=== PATIENT | female | born 1970 | race Caucasian/White ===

== ENCOUNTER → 2017-03-26 | Outpatient (CLI) | payer BC | LOC: WOUNDCARE 13:21 | PROVIDERS: ATTEND Nurse Practitioner | DX: L98.422 Non-pressure chronic ulcer of back with fat layer exposed (principal) | CPT/HCPCS: 11042; 11045 ==

== ENCOUNTER → 2017-03-26 | Outpatient (CLI) | payer BC ==
--- NOTE | 2017-03-26 21:54 | Diagnostic Imaging Report ---
2 views of the left scapula. INDICATION: Nonpressure ulcer. FINDINGS: No fracture or dislocation seen. No radiopaque foreign body. No erosion or periosteal reaction is seen to suggest osteomyelitis. There is a BB marker placed along the left trapezius region marking site of skin ulcer which is superior to the location of the scapula and appears to relate to the posterior upper left ribs. No definite osseous abnormality. IMPRESSION: No erosion or periosteal reaction is seen. Dictated by: Dictated on workstation # [id number]
== END ==
LOC: RAD 15:14
PROVIDERS: ATTEND Nurse Practitioner
DX: L98.422 Non-pressure chronic ulcer of back with fat layer exposed (principal)
CPT/HCPCS: 73010

== ENCOUNTER → 2017-04-02 | Outpatient (CLI) | payer BC | LOC: WOUNDCARE 15:35 | PROVIDERS: ATTEND Nurse Practitioner | DX: L98.422 Non-pressure chronic ulcer of back with fat layer exposed (principal) | CPT/HCPCS: 11042 ==

== ENCOUNTER → 2017-04-09 | Outpatient (CLI) | payer BC | LOC: WOUNDCARE 15:37 | PROVIDERS: ATTEND Nurse Practitioner | DX: L98.422 Non-pressure chronic ulcer of back with fat layer exposed (principal) | CPT/HCPCS: 11042 ==

== ENCOUNTER → 2017-04-16 | Outpatient (CLI) | payer BC | LOC: WOUNDCARE 15:28 | PROVIDERS: ATTEND Nurse Practitioner | DX: L98.422 Non-pressure chronic ulcer of back with fat layer exposed (principal) | CPT/HCPCS: 11042 ==

== ENCOUNTER → 2017-04-16 | Outpatient (CLI) | payer BC ==
--- NOTE | 2017-04-16 19:59 | Diagnostic Imaging Report ---
Ultrasound of the neck. INDICATION: Keloid area. FINDINGS: There is a hypoechoic circumscribed elongated lesion along the upper back measuring 4.9 x 0.6 x 3.7 cm which appears to be based on the skin. There is mild internal vascularity seen. A second hypoechoic lesion is seen in the upper back also appears to be based on the skin measuring 4.3 x 0.4 x 2.5 cm. Mild internal vascularity with color Doppler is seen. IMPRESSION: Nonspecific skin-based circumscribed lesions are seen in 2 areas in the upper back. These could relate to scarring. Correlate clinically. Dictated by: Dictated on workstation # [id number]
== END ==
LOC: RAD 14:16
PROVIDERS: ATTEND Nurse Practitioner
DX: L98.422 Non-pressure chronic ulcer of back with fat layer exposed (principal)
CPT/HCPCS: 76536

== ENCOUNTER → 2017-04-30 | Outpatient (CLI) | payer BC | LOC: WOUNDCARE 15:25 | PROVIDERS: ATTEND Nurse Practitioner | DX: L98.422 Non-pressure chronic ulcer of back with fat layer exposed (principal) | CPT/HCPCS: 11042 ==

== ENCOUNTER → 2017-05-04 | Outpatient (CLI) | payer BC | LOC: WOUNDCARE 14:36 | PROVIDERS: ATTEND Surgery | DX: L98.422 Non-pressure chronic ulcer of back with fat layer exposed (principal) | CPT/HCPCS: 11042; 87070; 87075; 87186; 87205 ==

== ENCOUNTER → 2017-05-12 | Outpatient (CLI) | payer BC ==
[2017-05-12 11:49] LABS: ANION GAP 9 MMOL/L (5-14); BLOOD UREA NITROGEN 16 MG/DL (7-18); BUN/CREATININE RATIO 21; CALCIUM 9.2 MG/DL (8.5-10.1); CARBON DIOXIDE 28 MMOL/L (21-32); CHLORIDE 103 MMOL/L (98-107); CREATININE SERUM 0.78 MG/DL (0.60-1.30); GFR ESTIMATED > 60; GLUCOSE 102 MG/DL (70-105); POTASSIUM 3.6 MMOL/L (3.6-5.0); SODIUM 140 MMOL/L (135-145)
== END ==
LOC: LAB 11:08
PROVIDERS: ATTEND Nurse Practitioner
DX: L98.422 Non-pressure chronic ulcer of back with fat layer exposed (principal); L03.818 Cellulitis of other sites
CPT/HCPCS: 36415; 80048

== ENCOUNTER → 2017-05-12 | Outpatient (CLI) | payer BC | LOC: WOUNDCARE 10:12 | PROVIDERS: ATTEND Nurse Practitioner | DX: L98.422 Non-pressure chronic ulcer of back with fat layer exposed (principal); L03.818 Cellulitis of other sites | CPT/HCPCS: 11042 ==

== ENCOUNTER → 2017-05-21 | Outpatient (CLI) | payer BC ==
--- NOTE | 2017-05-22 18:01 | Diagnostic Imaging Report ---
Bilateral screening mammogram 2D views with tomosynthesis. The current study was also evaluated with a Computer Aided Detection (CAD) system. INDICATION: Screening. No current complaints stated on the questionnaire. COMPARISON: None. This is a baseline study. FINDINGS: The breasts are composed of heterogeneously dense parenchyma which may decrease mammographic sensitivity. No mass, architectural distortion, or suspicious cluster of calcifications is seen. IMPRESSION: Dense breast parenchyma with no suspicious focal mass. Annual screening mammogram is recommended. ACR BI-RADS Category 2: Benign findings. Result letter will be mailed to the patient. Note: At least 10% of breast cancer is not imaged by mammography. Dictated on workstation # [id number]
== END ==
LOC: RAD 14:52
PROVIDERS: ATTEND Obstetrics & Gynecology
DX: Z12.31 Encounter for screening mammogram for malignant neoplasm of breast (principal)

== ENCOUNTER → 2017-05-21 | Outpatient (CLI) | payer BC | LOC: WOUNDCARE 15:16 | PROVIDERS: ATTEND Nurse Practitioner | DX: L98.422 Non-pressure chronic ulcer of back with fat layer exposed (principal); L03.818 Cellulitis of other sites | CPT/HCPCS: 11042 ==

== ENCOUNTER → 2017-05-28 | Outpatient (CLI) | payer BC | LOC: WOUNDCARE 15:30 | PROVIDERS: ATTEND Nurse Practitioner | DX: L98.422 Non-pressure chronic ulcer of back with fat layer exposed (principal); L03.818 Cellulitis of other sites | CPT/HCPCS: 11042 ==

== ENCOUNTER → 2017-06-04 | Outpatient (CLI) | payer BC | LOC: WOUNDCARE 15:35 | PROVIDERS: ATTEND Nurse Practitioner | DX: L98.422 Non-pressure chronic ulcer of back with fat layer exposed (principal); L03.818 Cellulitis of other sites | CPT/HCPCS: 11042 ==

== ENCOUNTER → 2017-06-11 | Outpatient (CLI) | payer BC | LOC: WOUNDCARE 13:58 | PROVIDERS: ATTEND Surgery | DX: L98.422 Non-pressure chronic ulcer of back with fat layer exposed (principal); L03.818 Cellulitis of other sites | CPT/HCPCS: 11042 ==

== ENCOUNTER → 2017-06-11 | Outpatient (CLI) | payer BC ==
--- NOTE | 2017-06-11 15:17 | Diagnostic Imaging Report ---
EXAMINATION: Pelvic ultrasound. INDICATION: Right-sided mass, pelvic pressure. FINDINGS: There are no prior ultrasound studies available for comparison. The uterus is not enlarged measuring 5 x 3.2 x 2.3 cm. The endometrial lining is not thickened measuring 3 mm. There is no focal mass involving the uterus to suggest a fibroid. The ovaries are not well visualized. There is no solid pelvic mass or free fluid collection noted. IMPRESSION: 1. There is no acute pelvic abnormality identified although neither ovary is visualized. 2. If clinical concern regarding an acute abnormality persists and further imaging is desired, then CT will be recommended. Dictated on workstation # [id number]
== END ==
LOC: RAD 13:31
PROVIDERS: ATTEND Obstetrics & Gynecology
DX: R10.2 Pelvic and perineal pain (principal); N95.0 Postmenopausal bleeding
CPT/HCPCS: 76830; 76856

== ENCOUNTER → 2017-06-18 | Outpatient (CLI) | payer BC | LOC: WOUNDCARE 15:44 | PROVIDERS: ATTEND Nurse Practitioner | DX: L98.422 Non-pressure chronic ulcer of back with fat layer exposed (principal); L03.818 Cellulitis of other sites | CPT/HCPCS: 11042 ==

== ENCOUNTER → 2017-06-25 | Outpatient (CLI) | payer BC | LOC: WOUNDCARE 14:09 | PROVIDERS: ATTEND Nurse Practitioner | DX: L98.422 Non-pressure chronic ulcer of back with fat layer exposed (principal); L03.818 Cellulitis of other sites | CPT/HCPCS: 11042 ==

== ENCOUNTER → 2017-07-02 | Outpatient (CLI) | payer BC | LOC: WOUNDCARE 13:05 | PROVIDERS: ATTEND Nurse Practitioner | DX: L98.422 Non-pressure chronic ulcer of back with fat layer exposed (principal) | CPT/HCPCS: 11042 ==

== ENCOUNTER 2017-07-07 12:10 | Outpatient (CLI) | payer BC ==
[~2017-07-07] VITALS: Ht 162.6 cm; Wt 81.2 kg
[2017-07-07 12:19] VITALS: BP 128/79
[2017-07-07] MEDS ORDERED: NF-PREM2.5 PO (12:27)
== END 2017-07-07 13:30 | disposition home or self-care (01) ==
LOC: PREOP 12:10
PROVIDERS: ATTEND Surgery
DX: Z01.818 Encounter for other preprocedural examination (principal); Z11.2 Encounter for screening for other bacterial diseases; L98.422 Non-pressure chronic ulcer of back with fat layer exposed
CPT/HCPCS: 87081

== ENCOUNTER → 2017-07-16 | Outpatient (CLI) | payer BC ==
[~2017-07-16] MED LIST: NF-PREM2.5 PO
== END ==
LOC: WOUNDCARE 13:37
PROVIDERS: ATTEND Nurse Practitioner
DX: L98.422 Non-pressure chronic ulcer of back with fat layer exposed (principal)
CPT/HCPCS: 11042

== ENCOUNTER → 2017-07-23 | Outpatient (CLI) | payer BC | LOC: WOUNDCARE 14:12 | PROVIDERS: ATTEND Nurse Practitioner | DX: L98.422 Non-pressure chronic ulcer of back with fat layer exposed (principal) | CPT/HCPCS: 11042 ==

== ENCOUNTER → 2017-08-06 | Outpatient (CLI) | payer BC | LOC: WOUNDCARE 14:12 | PROVIDERS: ATTEND Nurse Practitioner | DX: L98.422 Non-pressure chronic ulcer of back with fat layer exposed (principal) | CPT/HCPCS: 11042 ==

== ENCOUNTER 2018-10-02 12:05 | Emergency (ER) | payer BC ==
[~2018-10-02] VITALS: Ht 160 cm; Wt 81.6 kg
--- OUTSIDE RECORDS SUMMARY | 2018-10-02 12:10 | XMS REPORT ---
Author Author Migration, Doctor Organization [facility] Address Unknown Phone Unavailable Care Team Providers Care Muff Winder Name Role Phone Migration, Doctor Unavailable Unavailable PROBLEMS Type Condition ICD9-CM Code [id number] Code Onset Dates Condition Status SNOMED Code Problem Spasm of muscle 728.85 Active 34268304 Problem Overactive bladder N32.81 Active 640143016 ALLERGIES No Information ENCOUNTERS Encounter Location Date Diagnosis [address] [id number] 15 Jul, 2018 History of bronchitis Z87.[address] [id number] 07 Jul, 2018 Bron[address]itis J[address] [id number] Jul, Bronchitis J40 [address] [id number] Jun, Bronchitis J40 and Overactive bladder N32.81 [facility] [id number] [place] [id number] Sep, [facility] [id number] [place] [address] Sep, [address] [id number] Dec, [facility] [id number] [place] [phone] May, [facility] [address] [address] Apr, [facility] [address] [id number] October, [facility] [address] [address] Jun, [facility] [address] [facility] [id number] [address] Jun, [facility] [address] [facility] [id number], [place] [address] May, [facility] [address] [facility] [id number], [place] [address] May, [facility] [address] [facility] [id number], [place] [address] Apr, [facility] [address] [id number][place] [address] Apr, [facility] [address] [facility] [id number], [place] [address] Apr, [facility] [address] [facility] [id number], [place] [address] Apr, [facility] [address] [facility] [id number], [place] [address] Mar, [facility] [address] [facility] [id number], [place] [address] Mar, [facility] [address] [id number], [place] [address] Mar, [facility] [address] [id number], [place] [address] Jan, [facility] [address] [facility] [id number], [place] [address] Nov, [facility] [address] [facility] [id number], [place] [address] October, [facility] [address] [facility] [id number][place] [address] 14 Sep, 2008 [facility] [address] [facility] [id number], [place] [address] 13 Jul, 2008 IMMUNIZATIONS No Known Immunizations SOCIAL HISTORY Never Assessed [place] [place] VITAL SIGNS MEDICATIONS Medication Instructions Dosage Frequency Start Date End Date Duration Status Meloxicam 15 mg take 1 tablet (15 mg) by oral route once daily Dec, Active Parafon Forte DSC 500 mg 1 tablet by Oral route 3 times per day for 14 day( s)PRN Dec, Active RESULTS No Results PROCEDURES No Known procedures INSTRUCTIONS MEDICATIONS ADMINISTERED No Known Medications MEDICAL (GENERAL) HISTORY Type Description Date Surgical History bladder suspension Surgical History tubal ligation Surgical History wound on neck Hospitalization History Surgery(s)/Childbirth(s) only
--- OUTSIDE RECORDS SUMMARY | 2018-10-02 12:10 | XMS REPORT ---
Author Author YESSY JONES [facility] Address [address] [place] [address] Care Team Providers Care Tuber Operator Name Role Phone JONESYESSY Fry Unavailable PROBLEMS Type Condition ICD9-CM Code RXR63-CV Code Onset Dates Condition Status SNOMED Code Problem Overactive bladder N32.81 Active 085668610 Problem Spasm of muscle 728.85 Active 20570276 ALLERGIES Substance Reaction Event Type Date Status SulfADIAZINE hives Drug Allergy Jun, Active Benadryl hypes her up Drug Allergy Jun, Active Mycins hives Non Drug Allergy Jun, Active SOCIAL HISTORY Never Assessed PLAN OF CARE Activity Details Follow Up prn Reason: VITAL SIGNS Height 64 in 2016-07-07 Weight 172.2 lbs 2016-07-07 Temperature 97.7 degrees Fahrenheit 2016-07-07 Heart Rate 82 bpm 2016-07-07 Respiratory Rate 18 2016-07-07 BMI 29.55 kg/m2 2016-07-07 Blood pressure systolic 110 mmHg 2016-07-07 Blood pressure diastolic 64 mmHg 2016-07-07 MEDICATIONS Medication Instructions Dosage Frequency Start Date End Date Duration Status Detrol 1 MG Orally Twice a day 1 tablet 12h Jun, Active PrednisoLONE 5 mg as directed Jun, Active Benzonatate 100 mg Orally Three times a day 1 capsule as needed 8h Jun, Active Albuterol Sulfate HFA 108 (90 Base) MCG/ACT Inhalation 4 times a day 2 puffs as needed 6h Jun, Active RESULTS Name Result Date Reference Range UA LONG DIP (IN HOUSE) 2016-07-07 Lot # [id number] Exp date 05/01 Clarity clear Color yellow Odor no GLU neg LILY neg KET neg SG 1.025 BLO neg pH 7.0 Protein neg URO 0.2 NIT neg GENEVA neg Lot # Exp date PROCEDURES Procedure Date Ordered Result Body Site URINALYSIS, AUTO, W/O SCOPE Jul 07, 2016 IMMUNIZATIONS No Known Immunizations MEDICAL (GENERAL) HISTORY Type Description Date Surgical History bladder suspension Surgical History tubal ligation Hospitalization History Surgery(s)/Childbirth(s) only
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
--- NOTE | 2018-10-02 12:15 | NUR ---
ATTEMPT TO BRING PT TO A ROOM ET PT NOT IN WAITING ROOM.
[2018-10-02] MEDS ORDERED: TETRACAINE 0.5% OPHTH SOLN 4 ML BTL (SINGLE DOSE ONLY) OU ONE (12:30)
[2018-10-02] MEDS ORDERED: FLUORESCEIN (FLUOR-I-STRIPS) 1 MG STRP OU ONE (12:30)
[2018-10-02] MEDS ORDERED: BSS 15 ML IR ONE (12:30)
--- NOTE | 2018-10-02 13:02 | ED EENT ---
History of Present Illness General Chief Complaint: Eye Problems Stated Complaint: ZACHARY IN EYE Nursing Triage Note: ARRIVED VIA AMB TO ROOM 07. 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 STATES SHE HAS TRIED FLUSHING HER EYE AND TOOK A SHOWER. Source: patient Exam Limitations: no limitations History of Present Illness Date Seen by Provider: Oct 02, 2018 Time Seen by Provider: 12:21 Initial Comments This 48-year-old woman presents to the emergency room with intense left eye pain after a glob of mortar fell in it while she was working with [employer]. She irrigated it with water, took a shower, and used Systane drops but is still having intense pain. She does not want to open either of her eyes and presents with sunglasses on and a cloth over her eyes. The incident happened within about the last hour. Allergies and Home Medications Allergies Coded Allergies: Penicillins (Verified Allergy, Unknown, 07/07/17) Sulfa (Sulfonamide Antibiotics) (Verified Allergy, Unknown, 07/07/17) acetaminophen (Verified Allergy, Unknown, LETHARIC, 07/07/17) arginine (Verified Allergy, Unknown, ANAPHYLAXIS, 07/07/17) ascorbic acid (Verified Allergy, Unknown, ANAPHYLAXIS, 07/07/17) citric acid (Verified Allergy, Unknown, ANAPHYLAXIS, 07/07/17) diphenhydramine (Verified Allergy, Unknown, ANAPHYLAXIS, 07/07/17) doxepin (Verified Allergy, Unknown, 07/07/17) egg (Verified Allergy, Unknown, 07/07/17) hydrocodone (Verified Allergy, Unknown, LETHARIC, 07/07/17) lidocaine (Verified Allergy, Unknown, 07/07/17) malic acid (Verified Allergy, Unknown, ANAPHYLAXIS, 07/07/17) meloxicam (Verified Allergy, Unknown, 07/07/17) meperidine (Verified Allergy, Unknown, 07/07/17) vitamin E (d-alpha tocopherol) (Verified Allergy, Unknown, ANAPHYLAXIS, ) whey (Verified Allergy, Unknown, ANAPHYLAXIS, 07/07/17) Home Medications Estrog Conj/Medryoxyprog Acet 1 Tab Tab, 1 TAB PO DAILY, (Reported) Patient Home Medication List Home Medication List Reviewed: Yes Review of Systems Review of Systems Constitutional: no symptoms reported Eyes: See HPI Ears: No Symptoms Reported Nose: no symptoms reported Mouth: no symptoms reported Throat: no symptoms reported Respiratory: no symptoms reported Cardiovascular: no symptoms reported Gastrointestinal: no symptoms reported Musculoskeletal: no symptoms reported Skin: no symptoms reported Neurological: No Symptoms Reported Hematologic/Lymphatic: No Symptoms Reported Past Tyoxlhq-Vdzste-Oozltf Hx Patient Social History Alcohol Use: Denies Use Recreational Drug Use: No Smoking Status: Never a Smoker Recent Foreign Travel: No Contact w/Someone Who Travel: No Recent Infectious Disease Expo: No Recent Hopitalizations: No Seasonal Allergies Seasonal Allergies: No Past Medical History Surgeries: Yes (DXLS, ANT REPAIR) Tubal Ligation Respiratory: No Cardiac: No Neurological: Yes Headaches /Migraines UTI-Chronic Gastrointestinal: Yes (HX OF CONSTIPATION, HX OF IRRITABLE BOWEL) Musculoskeletal: No Endocrine: No Cancer: No Psychosocial: No Integumentary: Yes (WOUND ON BACK) Pruritis Blood Disorders: No Visual Acuity : Eye Location: Left Physical Exam Vital Signs Vital Signs - First Documented 10/02/18 12:19 Temp 98.0 Pulse 77 Resp 16 B/P (MAP) 144/94 (111) Pulse Ox 98 O2 Delivery Room Air Height, Weight, BMI Height: 5'3.00" Weight: 180lbs. 0.0oz. 81.246343ov; 30.7 BMI Method:Stated General Appearance: WD/WN, moderate distress Eyes: right eye normal inspection, right eye corneal abrasion (there is corneal abrasion covering at least one third of the cornea on the inferior aspect. There is questionable chemical burn as well. Irregularity of the cornea could be seen without floor seen and was much more prominent with floor seen exam. No foreign bodies were detected.); bilateral eye PERRL, bilateral eye EOMI Ears: bilateral ear auricle normal Nose: normal inspection Cardiovascular: regular rate, rhythm, no edema, no murmur Respiratory: lungs clear, normal breath sounds, no respiratory distress Neurologic/Psychiatric: frame cleaner II-XII nml as tested (vision blurred in the left eye due to corneal abrasion), no motor/sensory deficits, alert, normal mood/ affect, oriented x 3 Skin: normal color, warm/dry Procedures/Interventions Eye : Location: left eye Eye Irrigated w/ Saline (ccs): 30 Anesthesia (gtts): Tetracaine Progress/Procedure Conclusion I was anesthetized with tetracaine drops. Corneal abrasion and/or chemical burn was noted covering about one fourth to one third of the cornea on the inferior aspect. Eye was irrigated with a bottle of balanced saline. An additional drop of tetracaine was placed after irrigation. Patient was sent directly to Dr. Vazquez's office. Progress/Results/Core Measures Results/Orders My Orders Orders - TONEY CAMPA MD Tetracaine 0.5% Ophth Imelda Sdv (Tetracai (10/02/18 12:30) Fluorescein Strips (Fadjw-M-Youjjx) (10/02/18 12:30) Balanced Salt Irrigation Soln (Bss Irrig (10/02/18 12:30) Medications Given in ED Current Medications Medications Dose Ordered Sig/Darlin Route Start Time Stop Time Status Last Admin Dose Admin Balanced Salt Solution 15 ml ONCE ONCE IR 10/02/18 12:30 10/02/18 12:31 DC 10/02/18 12:30 15 ML Fluorescein Sodium 1 mg ONCE ONCE OU 10/02/18 12:30 10/02/18 12:31 DC 10/02/18 12:30 1 MG Tetracaine HCl 4 ml ONCE ONCE OU 10/02/18 12:30 10/02/18 12:31 DC 10/02/18 12:30 4 ML Vital Signs/I&O 10/02/18 12:19 Temp 98.0 Pulse 77 Resp 16 B/P (MAP) 144/94 (111) Pulse Ox 98 O2 Delivery Room Air Blood Pressure Mean: 111 Progress Progress Note : Progress Note Patient was seen and examined. I was anesthetized with tetracaine drops. I was then evaluated under magnification. Irregularity of the cornea was noted on the inferior aspect. Floor seen exam confirmed corneal abrasion and possible chemical burn. Eye was irrigated with a bottle of balanced saline. An additional drop of tetracaine was placed after irrigation. I contacted Dr. Vazquez who requested to see the patient and his office immediately. Patient is agreeable and was discharged to go directly to Dr. Vazquez's office. Departure Impression Primary Impression: Corneal abrasion Qualified Codes: S05.02XA - Injury of conjunctiva and corneal abrasion without foreign body, left eye, initial encounter Additional Impression: Chemical injury of eye Qualified Codes: T26.92XA - Corrosion of left eye and adnexa, part unspecified , initial encounter Disposition: XFER SHT-TRM HOSP Condition: Improved Departure-Patient Inst. Decision time for Depature: 13:00 Referrals: MALCOLM VAZQUEZ OD, JOHN D MD (PCP/Family) Primary Care Physician Patient Instructions: Chemical Eye Injury (DC), Corneal Abrasion (DC) Add. Discharge Instructions: Go directly to Dr. Vazquez's office. He will me to there. If he is not there yet wait in the parking lot for him out front. If you need to call him, his mobile number is [phone] and the office number is [phone]. All discharge instructions reviewed with patient and/or family. Voiced understanding. Copy Copies To 1: MALCOLM VAZQUEZ OD, JOSHUA T MD Oct 02, 2018 13:02
[2018-10-02 13:06] VITALS: BP 144/94
== END 2018-10-02 13:05 | disposition short-term general hospital (02) ==
LOC: EDUNIT# 12:05 → ER 12:06
DX: T26.92XA Corrosion of left eye and adnexa, part unspecified, initial encounter (principal); S05.02XA Injury of conjunctiva and corneal abrasion without foreign body, left eye, initial encounter; G43.909 Migraine, unspecified, not intractable, without status migrainosus; K58.9 Irritable bowel syndrome, unspecified; Z87.19 Personal history of other diseases of the digestive system; Z87.440 Personal history of urinary (tract) infections; Z88.0 Allergy status to penicillin; Z88.2 Allergy status to sulfonamides; Z88.6 Allergy status to analgesic agent; Z88.8 Allergy status to other drugs, medicaments and biological substances; Z88.5 Allergy status to narcotic agent; Z88.4 Allergy status to anesthetic agent; Z98.51 Tubal ligation status; X58.XXXA Exposure to other specified factors, initial encounter; Y92.59 Other trade areas as the place of occurrence of the external cause; Y99.0 Civilian activity done for income or pay
CPT/HCPCS: 99281

== ENCOUNTER → 2019-10-17 | Outpatient (CLI) | payer BC ==
--- NOTE | 2019-10-17 18:39 | Diagnostic Imaging Report ---
HISTORY: Fall with pain on the right foot. COMPARISON: None FINDINGS: Three views of the right foot are performed. Alignment appears normal. Joint spaces are preserved. A tiny type I accessory navicular is noted. IMPRESSION: No acute osseous abnormality is seen in the right foot. Dictated by: Dictated on workstation # [id number]
--- NOTE | 2019-10-17 18:39 | Diagnostic Imaging Report ---
INDICATION: Left rib injury from a fall. EXAM: PA chest and 3 views of the left ribs are obtained. FINDINGS: Heart size and pulmonary vascularity are normal. The lungs are clear. There are no effusions or pneumothoraces. There are no displaced rib fracture seen. IMPRESSION: Negative left ribs and chest. Dictated by: Dictated on workstation # [id number]
== END ==
LOC: RAD 17:28
PROVIDERS: ATTEND Internal Medicine
DX: M79.671 Pain in right foot (principal); R07.81 Pleurodynia; W19.XXXA Unspecified fall, initial encounter
CPT/HCPCS: 71101; 73630

== ENCOUNTER 2020-04-10 13:04 | Emergency (ER) | payer BC ==
[~2020-04-10] VITALS: Ht 162 cm; Wt 81.0 kg
[2020-04-10] MEDS ORDERED: ONDANSETRON 4 MG (ZOFRAN) ORAL DISSOLVE TAB PO ONE (14:15)
--- NOTE | 2020-04-10 14:28 | ED Head Injury ---
General Chief Complaint: Head/Cervical Problems Stated Complaint: CONCUSSION Nursing Triage Note: PT ARRIVES TO ER WITH C/O HEAD INJURY FROM A FALL AT 0800 THIS MORNING. PT SLIPPED ON ICE AND FELL ON LEFT SIDE AND HIT HEAD ON FLOWER POT Source: patient Exam Limitations: no limitations History of Present Illness Date Seen by Provider: Apr 10, 2020 Time Seen by Provider: 14:15 Initial Comments 49-year-old female who presents to emergency room with complaints of head injury from fall at 8:00 this morning. She reports that she was walking out of her home and fell down one step after slipping on the ice and striking her head on a flowerpot. She is unsure of loss of consciousness. She has small abrasions to her left eyebrow. She was seen and evaluated Dr. Lees's office and sent to the hospital for a CT of her head but reports that her insurance would not approve her CT scan. She reports mild paresthesia in her fingertips and nausea. Denies nausea or vomiting. Occurred: this morning Loss of Consciousness: no loss of consciousness Associated Systoms: Nausea/Vomiting Allergies and Home Medications Allergies Coded Allergies: Penicillins (Verified Allergy, Unknown, 07/07/17) Sulfa (Sulfonamide Antibiotics) (Verified Allergy, Unknown, 07/07/17) acetaminophen (Verified Allergy, Unknown, LETHARIC, 07/07/17) arginine (Verified Allergy, Unknown, ANAPHYLAXIS, 07/07/17) ascorbic acid (Verified Allergy, Unknown, ANAPHYLAXIS, 07/07/17) citric acid (Verified Allergy, Unknown, ANAPHYLAXIS, 07/07/17) diphenhydramine (Verified Allergy, Unknown, ANAPHYLAXIS, 07/07/17) doxepin (Verified Allergy, Unknown, 07/07/17) egg (Verified Allergy, Unknown, 07/07/17) hydrocodone (Verified Allergy, Unknown, LETHARIC, 07/07/17) lidocaine (Verified Allergy, Unknown, 07/07/17) malic acid (Verified Allergy, Unknown, ANAPHYLAXIS, 07/07/17) meloxicam (Verified Allergy, Unknown, 07/07/17) meperidine (Verified Allergy, Unknown, 07/07/17) vitamin E (d-alpha tocopherol) (Verified Allergy, Unknown, ANAPHYLAXIS, 07/07/17) whey (Verified Allergy, Unknown, ANAPHYLAXIS, 07/07/17) Home Medications Estrog Conj/Medryoxyprog Acet 1 Tab Tab, 1 TAB PO DAILY, (Reported) Patient Home Medication List Home Medication List Reviewed: Yes Review of Systems Review of Systems Constitutional: see HPI; No chills, No diaphoresis, No fever Psychiatric/Neurological: See HPI, Headache, Numbness, Tingling All Other Systems Reviewed Negative Unless Noted: Yes Past Fohvsyl-Rrtwli-Awmyhf Hx Past Med/Social Hx: Reviewed Nursing Past Med/Soc Hx Patient Social History Recent Foreign Travel: No Contact w/Someone Who Travel: No Recent Infectious Disease Expo: No Recent Hopitalizations: No Physical Abuse: No Sexual Abuse: No Mistreated: No Fear: No Seasonal Allergies Seasonal Allergies: No Past Medical History Surgeries: Yes (DXLS, ANT REPAIR) Tubal Ligation Respiratory: No Cardiac: No Neurological: Yes Headaches /Migraines UTI-Chronic Gastrointestinal: Yes (HX OF CONSTIPATION, HX OF IRRITABLE BOWEL) Musculoskeletal: No Endocrine: No Cancer: No Psychosocial: No Integumentary: Yes (WOUND ON BACK) Pruritis Blood Disorders: No Family Medical History Reviewed Nursing Family Hx Physical Exam Vital Signs Vital Signs - First Documented 04/10/20 13:45 Temp 36.5 Pulse 81 B/P (MAP) 145/95 (112) Pulse Ox 98 Capillary Refill : Less Than 3 Seconds Height, Weight, BMI Height: 5'3.00" Weight: 180lbs. 0.0oz. 81.990051xj; 30.00 BMI Method:Stated General Appearance: WD/WN, no apparent distress Cardiovascular: normal peripheral pulses, regular rate, rhythm, no edema, no gallop, no JVD, no murmur Respiratory: chest non-tender, lungs clear, normal breath sounds, no respiratory distress, no accessory muscle use Gastrointestinal: normal bowel sounds, non tender, soft, no organomegaly, no pulsatile mass Psychiatric: alert, oriented x 3 Crainal Nerves: normal hearing, normal speech, PERRL Coordination/Gait: normal finger to nose, normal gait Motor/Sensory: no motor deficit, no sensory deficit Skin: normal color, warm/dry Hayden Coma Score Best Eye Response: (4) Open Spontaneously Best Verbal Response: (5) Oriented Best Motor Response: (6) Obeys Commands [place] Total: 15 Progress/Results/Core Measures Results/Orders My Orders Orders - GILBERTO COLEMAN Foot, Right, 3 View (04/10/20 14:11) Ct Head/Cervical Spine Wo (04/10/20 14:11) Ondansetron Oral Dissolve Tab (Zofran (04/10/20 14:15) Medications Given in ED Current Medications Medications Dose Ordered Sig/Darlin Route Start Time Stop Time Status Last Admin Dose Admin Ondansetron HCl 4 mg ONCE ONCE PO 04/10/20 14:15 04/10/20 14:16 DC 04/10/20 14:22 4 MG Vital Signs/I&O 04/10/20 13:45 Temp 36.5 Pulse 81 B/P (MAP) 145/95 (112) Pulse Ox 98 Blood Pressure Mean: 112 Progress Progress Note : Time: 15:[address] Cummins radiologist reports negative CT of head and neck at this time. Patient's c-collar was removed at this time. She agrees with plan of care, plans for discharge, return precautions were given. Departure Impression Primary Impression: Injury of head and neck Additional Impression: Concussion without loss of consciousness Disposition: 01 HOME, SELF-CARE Condition: Stable/Unchanged Departure-Patient Inst. Decision time for Depature: 15:13 Referrals: GILLIAN LEES DO (PCP/Family) Primary Care Physician Patient Instructions: Minor Head Injury (DC), Concussion, Adult (DC) Add. Discharge Instructions: You may use Tylenol and ibuprofen as needed for pain relief. Ice to the sore areas at 20 minute intervals. Return back to the emergency room for worsening symptoms, change in level of consciousness, or any other concerns as needed. Follow-up with your primary care provider within 1 week for recheck. All discharge instructions reviewed with patient and/or family. Voiced understanding. GILBERTO COLEMAN Apr 10, 2020 14:28
--- NOTE | 2020-04-10 14:46 | Diagnostic Imaging Report ---
INDICATION: Right foot pain. TIME OF EXAM: 02:26 p.m. TECHNIQUE: Three views of the right foot were obtained. FINDINGS: Metatarsals are intact. Phalanges are intact. Midfoot and hindfoot are unremarkable. No fractures are seen. IMPRESSION: No acute bony abnormality is detected. Dictated by: Dictated on workstation # [id number]
--- NOTE | 2020-04-10 15:19 | Diagnostic Imaging Report ---
PROCEDURE: CT head and CT cervical spine without contrast. TECHNIQUE: Multiple contiguous axial images were obtained through the brain and cervical spine without the use of intravenous contrast. Sagittal and coronal reformations through the cervical spine were then performed. Auto Exposure Controls were utilized during the CT exam to meet ALARA standards for radiation dose reduction. INDICATION: Fall FINDINGS: HEAD: No hemorrhage, hydrocephalus, edema, mass, mass effect or evidence for elevation of the intracranial pressures. The orbits, sinuses and calvarium nonacute. No air-fluid levels. No pneumocephalus. CT CERVICAL SPINE: Reconstruction views reveal normal body heights align anatomically. No cervical spinal fracture or paravertebral hemorrhage. There are degenerative changes greatest at the C6-C7 level but no substantial degree of canal stenosis. IMPRESSION: Head: No hemorrhage, fracture or acute pathology. Cervical Spine: No fracture, traumatic malalignment or substantial stenosis. The results of this exam were discussed by phone with the emergency room physician prior to this dictation. Dictated by: Dictated on workstation # [id number]
[2020-04-10 15:28] VITALS: BP 141/88
== END 2020-04-10 15:36 | disposition home or self-care (01) ==
LOC: EDUNIT# 13:04 → ER 13:06
DX: S06.0X0A Concussion without loss of consciousness, initial encounter (principal); S00.212A Abrasion of left eyelid and periocular area, initial encounter; S19.9XXA Unspecified injury of neck, initial encounter; R40.2410 Glasgow coma scale score 13-15, unspecified time; Z88.0 Allergy status to penicillin; Z88.2 Allergy status to sulfonamides; Z88.5 Allergy status to narcotic agent; Z88.6 Allergy status to analgesic agent; Z88.8 Allergy status to other drugs, medicaments and biological substances; W01.10XA Fall on same level from slipping, tripping and stumbling with subsequent striking against unspecified object, initial encounter
CPT/HCPCS: 70450; 72125; 73630

== ENCOUNTER 2022-02-18 18:05 | Inpatient (IN) | payer BC ==
[~2022-02-18] VITALS: Ht 160 cm; Wt 78.6 kg
--- NOTE | 2022-02-18 19:16 | ED Abdominal Pain ---
General Chief Complaint: Abdominal/GI Problems Stated Complaint: ABD PAIN Source of Information: Patient Exam Limitations: No Limitations (EVENS LAWLER APRN) History of Present Illness Date Seen by Provider: Feb 18, 2022 Time Seen by Provider: 19:15 Initial Comments This is a 51 yo female who presented to the ER via POV with c/o left lower quadrant abdominal pain that started around 1-2pm. States she had sudden onset sharp, stabbing 10/10 pain with painful burning urination. Pain radiates into left flank and associated with nausea and vomiting. Has not taken anything prior to arrival. (EVENS LAWLER APRN) Allergies and Home Medications Allergies Coded Allergies: Penicillins (Verified Allergy, Unknown, 07/07/17) Sulfa (Sulfonamide Antibiotics) (Verified Allergy, Unknown, 07/07/17) acetaminophen (Verified Allergy, Unknown, LETHARIC, 07/07/17) arginine (Verified Allergy, Unknown, ANAPHYLAXIS, 07/07/17) ascorbic acid (Verified Allergy, Unknown, ANAPHYLAXIS, 07/07/17) citric acid (Verified Allergy, Unknown, ANAPHYLAXIS, 07/07/17) diphenhydramine (Verified Allergy, Unknown, ANAPHYLAXIS, 07/07/17) doxepin (Verified Allergy, Unknown, 07/07/17) egg (Verified Allergy, Unknown, 07/07/17) hydrocodone (Verified Allergy, Unknown, LETHARIC, 07/07/17) lidocaine (Verified Allergy, Unknown, 07/07/17) malic acid (Verified Allergy, Unknown, ANAPHYLAXIS, 07/07/17) meloxicam (Verified Allergy, Unknown, 07/07/17) meperidine (Verified Allergy, Unknown, 07/07/17) vitamin E (d-alpha tocopherol) (Verified Allergy, Unknown, ANAPHYLAXIS, 07/07/17) whey (Verified Allergy, Unknown, ANAPHYLAXIS, 07/07/17) Patient Home Medication List Home Medication List Reviewed: Yes (EVENS LAWLER APRN) Cholecalciferol (Vitamin D3) (Vitamin D3) 50 Mcg (2000 Unit) Capsule, 50 MCG PO DAILY, (Reported) Entered as Reported by: JEIMY DUQUE on 02/19/22 7465 Last Action: Reviewed Estradiol (Estradiol Tablet) 1 Mg Tablet, 1 MG PO DAILY, (Reported) Entered as Reported by: JEIMY DUQUE on 02/19/221446 Last Action: Reviewed Lycopene/Lut Xt/Fruit Extracts (Fruit & Vegetable Daily Sftgel) 5 Mg-6 Mg-150 Mg Capsule, 1 EACH PO DAILY, (Reported) Entered as Reported by: JEIMY DUQUE on 02/19/221446 Last Action: Reviewed Medroxyprogesterone Acetate (Medroxyprogesterone Acetate) 2.5 Mg Tablet, 2.5 MG PO DAILY, (Reported) Entered as Reported by: JEIMY DUQUE on 02/19/221446 Last Action: Reviewed Mirabegron (Myrbetriq) 25 Mg Tab.er.24h, 25 MG PO DAILY, (Reported) Entered as Reported by: JEIMY DUQUE on 02/19/221446 Last Action: Reviewed Turmeric Root Extract (Turmeric) 500 Mg Tablet, 500 MG PO DAILY, (Reported) Entered as Reported by: JEIMY DUQUE on 02/19/221446 Last Action: Reviewed Vitamin B Complex (B Complex) 1 Each Tablet, 1 EACH PO DAILY, (Reported) Entered as Reported by: JEIMY DUQUE on 02/19/221446 Last Action: Reviewed Zinc Gluconate (Zinc) 50 Mg Tablet, 50 MG PO DAILY, (Reported) Entered as Reported by: JEIMY DUQUE on 02/19/221446 Last Action: Reviewed Discontinued Medications Estrog Conj/Medryoxyprog Acet (Prempro 0.625-2.5 mg Tablet) 1 Tab Tab, 1 TAB PO DAILY, (Reported) Discontinued Reason: No Longer Taking Entered as Reported by: JACINTO BARRAZA on 07/07/17 1227 Last Action: Discontinued Hydrocodone Bit/Acetaminophen (HYDROcodone/APAP 5 MG/325 MG TAB) 1 Tab Tab, 1 TAB PO Q4H PRN for PAIN-MILD (1-4) Discontinued Reason: No Longer Taking Prescribed by: EVENS LAWLER on 02/18/222140 Last Action: Discontinued Levofloxacin (Levofloxacin) 500 Mg Tablet, 500 MG PO DAILY Discontinued Reason: No Longer Taking Prescribed by: EVENS LAWLER on 02/18/222138 Last Action: Discontinued Ondansetron (Ondansetron Odt) 4 Mg Tab.rapdis, 4 MG PO Q6H PRN for NAUSEA-1ST LINE Discontinued Reason: No Longer Taking Prescribed by: EVENS LAWLER on 02/18/222138 Last Action: Discontinued Tamsulosin HCl (Flomax) 0.4 Mg Cap, 0.4 MG PO DAILY Discontinued Reason: No Longer Taking Prescribed by: EVENS LAWLER on 02/18/222138 Last Action: Discontinued Review of Systems Review of Systems Constitutional: chills; No fever EENTM: No Symptoms Reported Respiratory: No Symptoms Reported Cardiovascular: No Symptoms Reported Gastrointestinal: See HPI Genitourinary: See HPI; Denies Discharge Musculoskeletal: other (Flank pain ) Skin: no symptoms reported Psychiatric/Neurological: No Symptoms Reported Endocrine: No Symptoms Reported Hematologic/Lymphatic: No Symptoms Reported (EVENS LAWLER APRN) Past Uzvxubm-Qeeeui-Qevzoc Hx Immunizations Up To Date Tetanus Booster (TDap): Unknown (EVENS LAWLER APRN) Seasonal Allergies Seasonal Allergies: No (EVENS LAWLER APRN) Past Medical History Surgeries: Yes (DXLS, ANT REPAIR) Tubal Ligation Respiratory: No Cardiac: No Neurological: Yes Headaches /Migraines UTI-Chronic Gastrointestinal: Yes (HX OF CONSTIPATION, HX OF IRRITABLE BOWEL) Musculoskeletal: No Endocrine: No Cancer: No Psychosocial: No Integumentary: Yes (WOUND ON BACK) Pruritis Blood Disorders: No (EVENS LAWLER APRN) Physical Exam Vital Signs Vital Signs - First Documented 02/18/22 19:17 Temp 36.4 Pulse 68 Resp 18 B/P (MAP) 107/79 (88) (TONEY CAMPA MD) Vital Signs Capillary Refill : (EVENS LAWLER APRN) Height/Weight/BMI Height: 5'3.00" Weight: 180lbs. 0.0oz. 81.882619ym; 30.00 BMI Method:Stated General Appearance: WD/WN, no apparent distress HEENT: PERRL/EOMI, normal ENT inspection, pharynx normal Neck: full range of motion, normal inspection Respiratory: lungs clear, normal breath sounds, no respiratory distress, no accessory muscle use Cardiovascular: regular rate, rhythm, no murmur Gastrointestinal: soft, tenderness (LLQ, left flank ) Extremities: normal range of motion, normal inspection, normal capillary refill Back: CVA tenderness (L) Neurologic/Psychiatric: no motor/sensory deficits, alert, normal mood/affect, oriented x 3 Skin: normal color, warm/dry (EVENS LAWLER APRN) Progress/Results/Core Measures Results/Orders Lab Results Laboratory Tests Test 02/18/22 19:07 Range/Units White Blood Count 5.9 4.3-11.0 10^3/uL Red Blood Count 4.67 3.80-5.11 10^6/uL Hemoglobin 14.3 11.5-16.0 g/dL Hematocrit 43 35-52 % Mean Corpuscular Volume 93 80-99 fL Mean Corpuscular Hemoglobin 31 25-34 pg Mean Corpuscular Hemoglobin Concent 33 32-36 g/dL Red Cell Distribution Width 13.3 10.0-14.5 % Platelet Count 196 130-400 10^3/uL Mean Platelet Volume 10.9 9.0-12.2 fL Immature Granulocyte % (Auto) 0 % Neutrophils (%) (Auto) 82 H 42-75 % Lymphocytes (%) (Auto) 11 L 12-44 % Monocytes (%) (Auto) 7 0-12 % Eosinophils (%) (Auto) 0 0-10 % Basophils (%) (Auto) 0 0-10 % Neutrophils # (Auto) 4.8 1.8-7.8 10^3/uL Lymphocytes # (Auto) 0.6 L 1.0-4.0 10^3/uL Monocytes # (Auto) 0.4 0.0-1.0 10^3/uL Eosinophils # (Auto) 0.0 0.0-0.3 10^3/uL Basophils # (Auto) 0.0 0.0-0.1 10^3/uL Immature Granulocyte # (Auto) 0.0 0.0-0.1 10^3/uL Urine Color YELLOW Urine Clarity CLOUDY Urine pH 7.5 5-9 Urine Specific [place] 1.015 L 1.016-1.022 Urine Protein TRACE H NEGATIVE Urine Glucose (UA) NEGATIVE NEGATIVE Urine Ketones TRACE H NEGATIVE Urine Nitrite NEGATIVE NEGATIVE Urine Bilirubin NEGATIVE NEGATIVE Urine Urobilinogen 0.2 < = 1.0 MG/DL Urine Leukocyte Esterase NEGATIVE NEGATIVE Urine RBC (Auto) 2+ H NEGATIVE Urine RBC 10-25 H /HPF Urine WBC NONE /HPF Urine Squamous Epithelial Cells 0-2 /HPF Urine Renal Epithelial Cells NONE /HPF Urine Crystals NONE /LPF Urine Bacteria LARGE H /HPF Urine Casts NONE /LPF Urine Mucus NEGATIVE /LPF Urine Culture Indicated YES Sodium Level 141 135-145 MMOL/L Potassium Level 4.5 3.6-5.0 MMOL/L Chloride Level 105 98-107 MMOL/L Carbon Dioxide Level 21 21-32 MMOL/L Anion Gap 15 H 5-14 MMOL/L Blood Urea Nitrogen 19 H 7-18 MG/DL Creatinine 0.84 0.60-1.30 MG/DL Estimat Glomerular Filtration Rate 83 BUN/Creatinine Ratio 23 Glucose Level 121 H 70-105 MG/DL Calcium Level 9.1 8.5-10.1 MG/DL Corrected Calcium 9.0 8.5-10.1 MG/DL Total Bilirubin 0.2 0.1-1.0 MG/DL Aspartate Amino Transf (AST/SGOT) 52 H 5-34 U/L Alanine Aminotransferase (ALT/SGPT) 37 0-55 U/L Alkaline Phosphatase 57 40-136 U/L Total Creatine Kinase 490 H 29-168 U/L C-Reactive Protein High Sensitivity 0.02 0.00-0.50 MG/DL Total Protein 7.4 6.4-8.2 GM/DL Albumin 4.1 3.2-4.5 GM/DL (TONEY CAMPA MD) Micro Results Microbiology 02/18/22 Urine Culture - Final, Complete >=3 Gram Positive Isolates (TONEY CAMPA MD) Vital Signs/I&O 02/18/22 19:17 Temp 36.4 Pulse 68 Resp 18 B/P (MAP) 107/79 (88) (TONEY CAMPA MD) Progress Progress Note : Progress Note Patient examined, clinical suspicion for renal stone vs. acute pyelonephritis. Orders placed for renal stone workup. States she has multiple allergies and adverse reactions to medications. States she has taken Toradol in the past well. Given NS 1 liter bolus with Toradol 30mg IVP and Zofran 4mg IVP. Fentanyl offered, she declined stating she is sensitive to medications. Labs reviewed, no elevation in WBC, renal function within normal limits. States she feels dehydrated and feels like "razors" are in her vagina. Given Pyridium 200mg PO x1. CT abd/pelvis shows 4mm stone at the UVJ with mild hydronephrosis. UA + RBC, neg leuk est, neg WBC. Will plan to discharge home with pain management. States she can take Hydrocodone if she take Atarax first. Plan of care reviewed with patient and spouse. She will trial Hydrocodone with Atarax at home for pain, strain her urine, Flomax, and Zofran PRN. States she can only take Levofloxacin as she is "highly" allergic to other antibiotics. Due to severity of urinary symptoms and CT imaging will start on Levofloxacin PO. First doses given in ED. At time of manager financial reporting had removed IV and was preparing to help escort out patient when she grabbed her abdomen stating her pain returned and was again 8/10. States she does not feel she is able to go home due to severity of pain and is concerned she will likely return to ER if her symptoms return again. States her PCP is Dr. Santana. Will consult with Dr. Santana regarding clinical condition. Discussed case with Dr. Santana, will admit for obstructing ureteral stone and intractable pain. Will have nursing consult urology in AM. Discussed plan with patient and she is agreeable with plan. Informed that she may not be "pain free" but we would like to achieve a tolerable level. Verbalized understanding. VSS. She is stable to transfer to medical unit. (EVENS LAWLER MECHANIC WELDER) Diagnostic Imaging Diagonstic Imaging: Xray Comments [facility]. [place], [place] NAME: CONTRERAS DELGADO [facility] REC#: [id number] PT STATUS: REG ER : 1970 PHYSICIAN: EVENS LAWLER MECHANIC WELDER ADMIT DATE: 02/18/22/ER Signed Date of Exam:02/18/22 ABDOMEN/KUB 1VIEW Clinical indications: Patient with onset of lower abdominal pain and painful urination that started at approximately 1 to 2 PM today. Exam: KUB x-ray. Comparison: CT scan of the abdomen and pelvis performed without contrast dated 02/18/2022. Findings and impression: 1: The previously seen 4 mm stone in the left UVJ region is not localized on this exam. 2: Cholelithiasis is again seen. 3: There is a nonobstructed bowel gas pattern. There is no evidence of abdominal free air. 4: The visualized bones and extra abdominal soft tissues are unremarkable. Dictated by: Dictated on workstation # [id number] Dict: 02/18/222215 Trans: 02/18/222216 AI [id number] Interpreted by: KETTY ELLINGTON MD Electronically signed by: KETTY ELLINGTON MD 02/18/222216 Diagonstic Imaging: CT Plain Films/CT/US/NM/MRI: abdomen Comments [facility] [place] [place] NAME: CONTRERAS DELGADO [facility] REC#: [id number] PT STATUS: REG ER : 1970 PHYSICIAN: EVENS LAWLER APRN ADMIT DATE: 02/18/22/ER Signed Date of Exam:02/18/22 CT ABD/PELVIS WO(KIDNEY STONE) Clinical Indication: Patient with onset of lower abdominal pain and painful urination that started approximately 1 to 2 PM today. The patient has been vomiting and dry heaving since the pain started. Exam: CT exam of the abdomen and pelvis is performed without IV or oral contrast using stone protocol. Coronal and sagittal reformatted images were created. Auto Exposure Controls were utilized during the CT exam to meet ALARA standards for radiation dose reduction. Comparisons: None. Findings: There is mild atelectasis involving both lung bases. There are degenerative spurs involving the visualized portions of the lower thoracic spine. The liver, spleen, and adrenal glands are unremarkable. There are multiple small gallstones seen. Gallbladder is mild to moderately fluid distended. There is no gallbladder wall thickening or pericholecystic fluid. There is a 4 mm stone in the region of the left UVJ. There is associated mild left hydroureteronephrosis. There is mild to moderate left perinephric and periureteral fat stranding. There are no other urinary tract stones seen. The bladder is otherwise decompressed and unremarkable. There is no intra-abdominal free air or significant free fluid. There are multiple small periaortic lymph nodes seen. There is no intestinal obstruction. The appendix is unremarkable. The remainder of the intestines show no significant abnormality. The extra-abdominal and extrapelvic soft tissue structures are unremarkable. IMPRESSION: 1: There is a 4 mm mildly obstructive stone within the left UVJ region of the bladder. There is associated mild left hydroureteronephrosis and mild to moderate left perinephric and periureteral fat stranding. 2: The remainder of this exam shows no other significant abnormality. Dictated by: Dictated on workstation # [id number] Dict: 02/18/222057 Trans: 02/18/222342 [facility] [id number] Interpreted by: KETTY ELLINGTON MD Electronically signed by: KETTY ELLINGTON MD 02/18/222342 Reviewed: Reviewed by Me (EVENS LAWLER MECHANIC WELDER) Departure Communication (Admissions) Time/Spoke to Admitting Phy: 22:30 Dr. Santana, accepted medical admission for ureteral stone with intractable pain. Nursing to contact Dr. Russell in am. (EVENS LAWLER MECHANIC WELDER) Impression Primary Impression: Left ureteral stone Disposition: ADMITTED INPATIENT Condition: Stable Admissions Decision to Admit Reason: Admit from ER (General) Decision to Admit/Date: Feb 19, 2022 Time/Decision to Admit Time: 22:15 (EVENS LAWLER MECHANIC WELDER) Departure-Patient Inst. Decision time for Depature: 21:32 (EVENS LAWLER MECHANIC WELDER) Referrals: GILLIAN SANTANA DO (PCP/Family) Primary Care Physician JOSEPH RUSSELL MD Patient Instructions: Kidney Stones (DC), How to Strain Your Urine Add. Discharge Instructions: Plan: 1. Follow-up with Dr. Russell or local urologist, contact information has been provided. Call first thing in the morning to schedule follow up. 2. Take Levaquin 500 mg by mouth daily. 3. Drink plenty of fluids to facilitate passing of your stone and strain all of your urine as shown in the ER. 4. Take Tamsulosin 0.4 mg by mouth every evening at dinnertime. 5. May take Zofran 4mg by mouth every 6 hours as needed for nausea/vomiting. 6. Take Hydrocodone 5/325mg PO Q4 hours PRN pain. 7. Return to ER for any new, concerning, or worsening symptoms. All discharge instructions reviewed with patient and/or family. Voiced understanding. ATTENDING PHYSICIAN NOTE: I was physically present as attending physician in the emergency department during the care of this patient. I discussed findings and plan in brief with evens Lawler SPOOLER. I did not physically examine this patient or interview her personally, and I was not directly involved in the decision making or delivery of care for this patient. (TONEY CAMPA MD) EVENS LAWLER APRN Feb 18, 2022 19:15 TONEY CAMPA MD Feb 20, 2022 05:38
[2022-02-18 19:17] LABS: BASOPHILS % (AUTO) 0 % (0-10); EOSINOPHILS % (AUTO) 0 % (0-10); HEMATOCRIT 43 % (35-52); HEMOGLOBIN 14.3 g/dL (11.5-16.0); LYMPHOCYTES # (AUTO) 0.6 10^3/uL (1.0-4.0); LYMPHOCYTES % (AUTO) 11 % (12-44); MEAN CORPUSCULAR HEMOGLOBIN 31 pg (25-34); MEAN CORPUSCULAR HGB CONC 33 g/dL (32-36); MEAN CORPUSCULAR VOLUME 93 fL (80-99); MEAN PLATELET VOLUME 10.9 fL (9.0-12.2); MONOCYTES # (AUTO) 0.4 10^3/uL (0.0-1.0); MONOCYTES % (AUTO) 7 % (0-12); NEUTROPHILS # (AUTO) 4.8 10^3/uL (1.8-7.8); NEUTROPHILS % (AUTO) 82 % (42-75); PLATELET COUNT 196 10^3/uL (130-400); WHITE BLOOD COUNT 5.9 10^3/uL (4.3-11.0)
[2022-02-18 19:22] LABS: BILIRUBIN,URINE NEGATIVE (NEGATIVE); CLARITY,URINE CLOUDY; COLOR,URINE YELLOW; GLUCOSE, URINE (UA) NEGATIVE (NEGATIVE); KETONES,URINE TRACE (NEGATIVE); LEUKOCYTE ESTERASE ,URINE NEGATIVE (NEGATIVE); NITRITE,URINE NEGATIVE (NEGATIVE); PH,URINE 7.5 (5-9); PROTEIN,URINE TRACE (NEGATIVE)
[2022-02-18] MEDS ORDERED: KETOROLAC 30 MG/ML VIAL IVP ONE (19:30)
[2022-02-18] MEDS ORDERED: ONDANSETRON 4 MG/2 ML (SDV) Z0FRAN IVP ONE (19:30)
[2022-02-18 19:32] LABS: BACTERIA,URINE LARGE /HPF; SQUAMOUS EPITHELIAL CELL,UR 0-2 /HPF
[2022-02-18 20:07] LABS: ALBUMIN 4.1 GM/DL (3.2-4.5); BILIRUBIN,TOTAL 0.2 MG/DL (0.1-1.0); CALCIUM 9.1 MG/DL (8.5-10.1); CREATININE SERUM 0.84 MG/DL (0.60-1.30); POTASSIUM 4.5 MMOL/L (3.6-5.0); TOTAL PROTEIN 7.4 GM/DL (6.4-8.2)
[2022-02-18] MEDS ORDERED: PHENAZOPYRIDINE 100 MG (PYRIDIUM) TABLET PO ONE (20:45)
[2022-02-18] MEDS ORDERED: NS IV 1000 ML 1,000 ML IV ONE (20:45)
[2022-02-18] MEDS ORDERED: fentaNYL INJ 100 MCG/2 ML AMP IVP ONE (20:45)
--- NOTE | 2022-02-18 21:08 | Diagnostic Imaging Report ---
Clinical Indication: Patient with onset of lower abdominal pain and painful urination that started approximately 1 to 2 PM today. The patient has been vomiting and dry heaving since the pain started. Exam: CT exam of the abdomen and pelvis is performed without IV or oral contrast using stone protocol. Coronal and sagittal reformatted images were created. Auto Exposure Controls were utilized during the CT exam to meet ALARA standards for radiation dose reduction. Comparisons: None. Findings: There is mild atelectasis involving both lung bases. There are degenerative spurs involving the visualized portions of the lower thoracic spine. The liver, spleen, and adrenal glands are unremarkable. There are multiple small gallstones seen. Gallbladder is mild to moderately fluid distended. There is no gallbladder wall thickening or pericholecystic fluid. There is a 4 mm stone in the region of the left UVJ. There is associated mild left hydroureteronephrosis. There is mild to moderate left perinephric and periureteral fat stranding. There are no other urinary tract stones seen. The bladder is otherwise decompressed and unremarkable. There is no intra-abdominal free air or significant free fluid. There are multiple small periaortic lymph nodes seen. There is no intestinal obstruction. The appendix is unremarkable. The remainder of the intestines show no significant abnormality. The extra-abdominal and extrapelvic soft tissue structures are unremarkable. IMPRESSION: 1: There is a 4 mm mildly obstructive stone within the left UVJ region of the bladder. There is associated mild left hydroureteronephrosis and mild to moderate left perinephric and periureteral fat stranding. 2: The remainder of this exam shows no other significant abnormality. Dictated by: Dictated on workstation # [id number]
[2022-02-18] MEDS ORDERED: LEVO-55 PO (21:39)
[2022-02-18] MEDS ORDERED: TMSL.4C PO (21:39)
[2022-02-18] MEDS ORDERED: ONDA4TAB11 PO (21:39)
[2022-02-18] MEDS ORDERED: ACHD5005 PO (21:41)
[2022-02-18] MEDS ORDERED: RX-ONDANSETRON 4 MG ODT (ZOFRAN) PPK #4 PO STA (22:03)
--- NOTE | 2022-02-18 22:18 | Diagnostic Imaging Report ---
Clinical indications: Patient with onset of lower abdominal pain and painful urination that started at approximately 1 to 2 PM today. Exam: KUB x-ray. Comparison: CT scan of the abdomen and pelvis performed without contrast dated 02/18/2022. Findings and impression: 1: The previously seen 4 mm stone in the left UVJ region is not localized on this exam. 2: Cholelithiasis is again seen. 3: There is a nonobstructed bowel gas pattern. There is no evidence of abdominal free air. 4: The visualized bones and extra abdominal soft tissues are unremarkable. Dictated by: Dictated on workstation # [id number]
[2022-02-18] MEDS ORDERED: HYDROmorphone 2 MG/ML VIAL (DILAUDID) IVP ONE (23:15)
[2022-02-19] VITALS (16 sets, daily range): BP systolic 102–120; BP diastolic 56–79
[2022-02-19] MEDS ORDERED: NS IV 1000 ML 1,000 ML ONE (01:13)
[2022-02-19] MEDS ORDERED: RT-ALBUTEROL SULF 2.5 MG/3 ML PRE-MIX VIAL INH PRN (01:15)
[2022-02-19] MEDS ORDERED: hydrOXYzine (VISTARIL/ATARAX) 25 MG capsule/tablet PO PRN (01:45)
[2022-02-19] MEDS ORDERED: HYDROmorphone 2 MG/ML VIAL (DILAUDID) IV PRN (01:45)
[2022-02-19] MEDS ORDERED: LORazepam INJ 2 MG/ML (ATIVAN) VIAL IV PRN (01:45)
[2022-02-19] MEDS: NS IV 1000 ML 1,000 ML IV SCH ×4 (01:47→19:29)
[2022-02-19 06:01] LABS: BASOPHILS % (AUTO) 0 % (0-10); EOSINOPHILS % (AUTO) 0 % (0-10); HEMATOCRIT 37 % (35-52); HEMOGLOBIN 11.9 g/dL (11.5-16.0); LYMPHOCYTES % (AUTO) 27 % (12-44); MEAN CORPUSCULAR HEMOGLOBIN 30 pg (25-34); MEAN CORPUSCULAR HGB CONC 33 g/dL (32-36); MEAN CORPUSCULAR VOLUME 93 fL (80-99); MONOCYTES # (AUTO) 0.5 10^3/uL (0.0-1.0); MONOCYTES % (AUTO) 13 % (0-12); NEUTROPHILS # (AUTO) 2.2 10^3/uL (1.8-7.8); NEUTROPHILS % (AUTO) 59 % (42-75); PLATELET COUNT 174 10^3/uL (130-400); WHITE BLOOD COUNT 3.7 10^3/uL (4.3-11.0)
[2022-02-19 06:17] LABS: POTASSIUM 3.9 MMOL/L (3.6-5.0)
[2022-02-19 06:18] LABS: CALCIUM 8.1 MG/DL (8.5-10.1)
[2022-02-19 06:23] LABS: CREATININE SERUM 0.76 MG/DL (0.60-1.30)
[2022-02-19] MEDS: PANTOPRAZOLE 40 MG (PROTONIX) VIAL IV SCH (08:44)
--- NOTE | 2022-02-19 10:15 | Diagnostic Imaging Report ---
REASON FOR EXAM: Left-sided kidney stone. Flank pain. COMPARISON: 02/18/2022. TECHNIQUE: 2 views of the abdomen FINDINGS: The bowel gas pattern is nondistended. No large collection of free intraperitoneal air is seen. Scattered small amounts of gas and fecal material are present in the colon. Cholelithiasis is visualized in the right upper quadrant. No calculi are identified in the expected area of the kidneys and bilateral ureters. The osseous structures are age-appropriate. IMPRESSION: 1. No radiographic evidence of calculi overlying the kidneys or expected course of the bilateral ureters. If indicated, consider CT of the abdomen and pelvis without contrast to further evaluate. 2. Cholelithiasis. 3. No evidence of bowel obstruction or large collection of free intraperitoneal air. Dictated by: Dictated on workstation # [id number]
--- NOTE | 2022-02-19 10:23 | Progress Note-Pre Operative ---
Pre-Operative Progress Note Date of Available H&P: Feb 19, 2022 Date H&P Reviewed: Feb 19, 2022 Time H&P Reviewed: 10:22 Changes from last HP NONE Pre-Operative Diagnosis: LT DISTAL URETERAL STONE JOSEPH RUSSELL MD Feb 19, 2022 10:23
[2022-02-19] MEDS: LACTATED RINGERS 1,000 ML IV PRN ×2 (10:24→11:57)
--- NOTE | 2022-02-19 11:23 | CONSULTATION REPORT ---
DATE OF SERVICE: 02/19/2022 ATTENDING PHYSICIAN: Dr. Lees. SUMMARY: After reviewing the patient's records, interviewing her and examining her, this is a 51-year-old white female admitted from the emergency room with intractable left-sided pain, was found by CT scan to have a 4 mm stone in the left UVJ with mild obstructive changes. This is her first stone. She was admitted for symptomatic management. She said she passed something overnight, which sounded more like a speck, not an actual stone of the size that is by x-ray. She has multiple allergies per history. Her medication list was reviewed. REVIEW OF SYSTEMS: Otherwise, negative. ALLERGIES: She has no seasonal allergies. PAST SURGICAL HISTORY: Tubal ligation, anterior repair and diagnostic laparoscopy. She has a history of migraines and chronic UTIs. FAMILY HISTORY: Noncontributory. PHYSICAL EXAMINATION: In no acute distress at the time of my examination. The rest of the examination per history. Lab work yesterday, white count was 19,000. She has pyuria and microscopic hematuria, and kidney function is okay. KUB could not see the stone. CT was reviewed. IMPRESSION: Left distal ureteral stone with intractable pain and obstruction. RECOMMENDATION: I had a lengthy discussion with the patient discussing her options and alternatives, one is to observe and see how she does. She may have passed actually the stone or will pass the stone spontaneously or proceed with taking her to surgery for a left ureteroscopy and manage accordingly with lithotripsy, possible basket, stent or lithotomy. Comparison was completely explained to the patient and she wanted to proceed with the surgery understand all the above. CC: Dr. Lees -requested, unable to deliver. Job ID: [id number] DocumentID: [id number] Dictated Date: 02/19/2022 10:22:05 Business Operations Manager Date: 02/19/2022 11:23:27 Dictated By: JOSEPH RUSSELL MD
--- NOTE | 2022-02-19 11:39 | Progress Note-Post Operative ---
Post-Operative Progess Note Surgeon (s)/Doctor Chiropractic (s) Surgeon JOSEPH RUSSELL MD Doctor Chiropractic: NONE Pre-Operative Diagnosis LT DISTAL URETERAL STONE Post-Operative Diagnosis SAME Procedure & Operative Findings Date of Procedure 02/19/22 Procedure Performed/Findings LT URETEROSCOPY Anesthesia Type SPINAL Estimated Blood Loss Estimated blood loss (mL): NONE Specimens/Packing Specimens Removed NONE Packing: NONE JOSEPH RUSSELL MD Feb 19, 2022 11:39
[2022-02-19] MEDS ORDERED: ONDANSETRON 4 MG/2 ML (SDV) Z0FRAN IVP PRN (11:45)
[2022-02-19] MEDS ORDERED: fentaNYL INJ 100 MCG/2 ML AMP IVP ONE (11:45)
--- NOTE | 2022-02-19 13:42 | Anesthesia-Regional Post-Op ---
Regional Patient Condition Mental Status: Alert, Oriented x3 Circulation: Same as Pre-Op Headache: Absent Sensation: Full Recovery Motor Block: Absent Post Op Complications Complications None Follow Up Care/Instructions Patient Instructions None needed. Anesthesia/Patient Condition Patient is doing well, no complaints, stable vital signs, no apparent adverse anesthesia problems. No complications reported per nursing. D/C home per [facility] Criteria: Yes MATTY AMEZQUITA CRNA Feb 19, 2022 13:42
--- NOTE | 2022-02-19 14:16 | Short Stay Summary ---
[place] S[place] 02/19/22 1416: History of Present Illness History of Present Illness Reason for visit/HPI 51 year old white female arrived to ER yesterday with complaints of left lower quadrant abdominal pain that started around 1-2pm. States she had sudden onset sharp, stabbing 10/10 pain with painful burning urination. Pain radiates into left flank and associated with nausea and vomiting. She subsequently was admitted and had imagining ordered. Abdominal CT without contrast came back with a 4 mm mildly obstructive stone in left UVJ, with associated hydroureteronephrosis. She has no prior history of stones. As of this morning she believes she has passed the stone, and she no longer reports having pain. H owever, looking through the urine stainer there was no evidence of a stone. She has no other complaints at this time. Date of Admission Feb 18, 2022 at 23:44 Date of Discharge Time Seen by Provider: 14:17 Attending Physician Emily Santana DO Admitting Physician Admitting Physician: Emily Santana DO Attending Physician: Emily Santana DO Consult Allergies and Home Medications Allergies Coded Allergies: Penicillins (Verified Allergy, Unknown, 07/07/17) Sulfa (Sulfonamide Antibiotics) (Verified Allergy, Unknown, 07/07/17) acetaminophen (Verified Allergy, Unknown, LETHARIC, 07/07/17) arginine (Verified Allergy, Unknown, ANAPHYLAXIS, 07/07/17) ascorbic acid (Verified Allergy, Unknown, ANAPHYLAXIS, 07/07/17) citric acid (Verified Allergy, Unknown, ANAPHYLAXIS, 07/07/17) diphenhydramine (Verified Allergy, Unknown, ANAPHYLAXIS, 07/07/17) doxepin (Verified Allergy, Unknown, 07/07/17) egg (Verified Allergy, Unknown, 07/07/17) hydrocodone (Verified Allergy, Unknown, LETHARIC, 07/07/17) lidocaine (Verified Allergy, Unknown, 07/07/17) malic acid (Verified Allergy, Unknown, ANAPHYLAXIS, 07/07/17) meloxicam (Verified Allergy, Unknown, 07/07/17) meperidine (Verified Allergy, Unknown, 07/07/17) vitamin E (d-alpha tocopherol) (Verified Allergy, Unknown, ANAPHYLAXIS, 07/07/17) whey (Verified Allergy, Unknown, ANAPHYLAXIS, 07/07/17) Patient Home Medication List Cholecalciferol (Vitamin D3) (Vitamin D3) 50 Mcg (2000 Unit) Capsule, 50 MCG PO DAILY, (Reported) Entered as Reported by: JEIMY DUQUE on 02/19/221446 Last Action: Reviewed Estradiol (Estradiol Tablet) 1 Mg Tablet, 1 MG PO DAILY, (Reported) Entered as Reported by: JEIMY DUQUE on 02/19/221446 Last Action: Reviewed Lycopene/Lut Xt/Fruit Extracts (Fruit & Vegetable Daily [facility]) 5 Mg-6 Mg-150 Mg Capsule, 1 EACH PO DAILY, (Reported) Entered as Reported by: JEIMY DUQUE on 02/19/221446 Last Action: Reviewed Medroxyprogesterone Acetate (Medroxyprogesterone Acetate) 2.5 Mg Tablet, 2.5 MG PO DAILY, (Reported) Entered as Reported by: JEIMY DUQUE on 02/19/221446 Last Action: Reviewed Mirabegron (Myrbetriq) 25 Mg Tab.er.24h, 25 MG PO DAILY, (Reported) Entered as Reported by: JEIMY DUQUE on 02/19/221446 Last Action: Reviewed Turmeric Root Extract (Turmeric) 500 Mg Tablet, 500 MG PO DAILY, (Reported) Entered as Reported by: JEIMY DUQUE on 02/19/221446 Last Action: Reviewed Vitamin B Complex (B Complex) 1 Each Tablet, 1 EACH PO DAILY, (Reported) Entered as Reported by: JEIMY DUQUE on 02/19/221446 Last Action: Reviewed Zinc Gluconate (Zinc) 50 Mg Tablet, 50 MG PO DAILY, (Reported) Entered as Reported by: JEIMY DUQUE on 02/19/221446 Last Action: Reviewed Discontinued Medications Estrog Conj/Medryoxyprog Acet (Prempro 0.625-2.5 mg Tablet) 1 Tab Tab, 1 TAB PO DAILY, (Reported) Discontinued Reason: No Longer Taking Entered as Reported by: JACINTO BARRAZA on 07/07/17 0411 Last Action: Discontinued Hydrocodone Bit/Acetaminophen (HYDROcodone/APAP 5 MG/325 MG TAB) 1 Tab Tab, 1 TAB PO Q4H PRN for PAIN-MILD (1-4) Discontinued Reason: No Longer Taking Prescribed by: KARLY LAWLER on 9/62140 Last Action: Discontinued Levofloxacin (Levofloxacin) 500 Mg Tablet, 500 MG PO DAILY Discontinued Reason: No Longer Taking Prescribed by: KARLY LAWLER on 02/18/222138 Last Action: Discontinued Ondansetron (Ondansetron Odt) 4 Mg Tab.rapdis, 4 MG PO Q6H PRN for NAUSEA-1ST LINE Discontinued Reason: No Longer Taking Prescribed by: KARLY LAWLER on 02/18/222138 Last Action: Discontinued Tamsulosin HCl (Flomax) 0.4 Mg Cap, 0.4 MG PO DAILY Discontinued Reason: No Longer Taking Prescribed by: KARLY LAWLER on 02/18/222138 Last Action: Discontinued Past Xowipor-[id number]-[id number] Hx Patient Social History Number of Children: 2 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 ) Smoking Status: Never a Smoker (Current non smoker) 2nd Hand Smoke Exposure: No Recent Hopitalizations: No Have you traveled recently?: No Alcohol Use?: No Pt feels they are or have been: No Immunizations Up To Date Tetanus Booster (TDap): Unknown Seasonal Allergies Seasonal Allergies: No Surgeries Yes (DXLS, ANT REPAIR) Bladder Surgery (Bladder suspension), Tubal Ligation Respiratory No Asthma Currently Using CPAP: No Currently Using BIPAP: No Cardiovascular No Neurological Yes Headaches /Migraines Reproductive System : No Genitourinary Kidney Stones, Neurogenic Bladder (OAB), UTI-Chronic Gastrointestinal Yes (HX OF CONSTIPATION, HX OF IRRITABLE BOWEL) Musculoskeletal No Endocrine History of Endocrine Disorders: No HEENT History of HEENT Disorders: Yes (Chronic dry eye) Cancer No Psychosocial History of Psychiatric Problem: No Integumentary History of Skin or Integumenta: Yes (WOUND ON BACK and left mandible ) Skin/Integumentary Disorders: Pruritis Blood Transfusions History of Blood Disorders: No Family Medical History Significant Family History: Heart Disease (Father at 62 of heart attack) Review of Systems Constitutional: No chills, No diaphoresis, No weakness EENTM: No hearing loss, No ear pain Respiratory: No cough, No dyspnea on exertion, No hemoptysis Cardiovascular: No chest pain, No edema Gastrointestinal: No abdominal pain, No diarrhea Genitourinary: No decreased output, No discharge Musculoskeletal: back pain (Left CVA tenderness); No gout, No joint pain, No muscle pain Skin: No change in color, No change in hair/nails Psychiatric/Neurological: Denies Anxiety, Denies Depressed, Denies Emotional Problems Physical Exam Vital Signs Vital Signs - First Documented 02/18/22 02/19/22 02/19/22 19:17 00:47 01:11 Temp 36.4 Pulse 68 Resp 18 B/P (MAP) 107/79 (88) Pulse Ox 98 O2 Delivery Room Air FiO2 21 Capillary Refill : Less Than 3 Seconds Height, Weight, BMI Height: 5'3.00" Weight: 180lbs. 0.0oz. 81.242195ep; 30.70 BMI Method:Stated General Appearance: No Apparent Distress, WD/WN HEENT: PERRL/EOMI, Moist Mucous Membranes Neck: Full Range of Motion, Non Tender; No Carotid Bruit Respiratory: Chest Non Tender, Lungs Clear, Normal Breath Sounds Cardiovascular: Regular Rate, Rhythm, No Edema, No Gallop Gastrointestinal: No Organomegaly, Non Tender, Soft Rectal: Deferred Back: CVA Tenderness (L); No CVA Tenderness (R) Extremity: Normal Capillary Refill, Normal Inspection, Normal Range of Motion Neurologic/Psychiatric: Alert, Oriented x3 Skin: Normal Color, Warm/Dry Lymphatic: No Adenopathy Short Stay Diagnosis Discharge Diagnosis-Short Stay Admission Diagnosis: Left ureteral stone Sudden acute onset intractable pain-left flank Acute onset dysuria Final Discharge Diagnosis: Left ureteral stone Hydroureternephrosis Cholelithiasis Conclusion Labs Laboratory Tests 02/18/22 19:07: White Blood Count 5.9, Red Blood Count 4.67, Hemoglobin 14.3, Hematocrit 43, Mean Corpuscular Volume 93, Mean Corpuscular Hemoglobin 31, Mean Corpuscular Hemoglobin Concent 33, Red Cell Distribution Width 13.3, Platelet Count 196, Mean Platelet Volume 10.9, Immature Granulocyte % (Auto) 0, Neutrophils (%) (Auto) 82H, Lymphocytes (%) (Auto) 11L, Monocytes (%) (Auto) 7, Eosinophils (%) (Auto) 0, Basophils (%) (Auto) 0, Neutrophils # (Auto) 4.8, Lymphocytes # (Auto) 0.6L, Monocytes # (Auto) 0.4, Eosinophils # (Auto) 0.0, Basophils # (Auto) 0.0, Immature Granulocyte # (Auto) 0.0, Urine Color YELLOW, Urine Clarity CLOUDY, Urine pH 7.5, Urine Specific [place] 1.015L, Urine Protein TRACEH, Urine Glucose (UA) NEGATIVE, Urine Ketones TRACEH, Urine Nitrite NEGATIVE, Urine Bilirubin NEGATIVE, Urine Urobilinogen 0.2, Urine Leukocyte Esterase NEGATIVE, Urine RBC (Auto) 2+H, Urine RBC 10-25H, Urine WBC NONE, Urine Squamous Epithelial Cells 0- 2, Urine Renal Epithelial Cells NONE, Urine Crystals NONE, Urine Bacteria LARGEH , Urine Casts NONE, Urine Mucus NEGATIVE, Urine Culture Indicated YES, Sodium Level 141, Potassium Level 4.5, Chloride Level 105, Carbon Dioxide Level 21, Anion Gap 15H, Blood Urea Nitrogen 19H, Creatinine 0.84, Estimat Glomerular Filtration Rate 83, BUN/Creatinine Ratio 23, Glucose Level 121H, Calcium Level 9.1, Corrected Calcium 9.0, Total Bilirubin 0.2, Aspartate Amino Transf (AST/SGOT) 52H, Alanine Aminotransferase (ALT/SGPT) 37, Alkaline Phosphatase 57, Total Creatine Kinase 490H, C-Reactive Protein High Sensitivity 0.02, Total Protein 7.4, Albumin 4.1 02/19/22 05:36: White Blood Count 3.7L, Red Blood Count 3.94, Hemoglobin 11.9, Hematocrit 37, Mean Corpuscular Volume 93, Mean Corpuscular Hemoglobin 30, Mean Corpuscular Hemoglobin Concent 33, Red Cell Distribution Width 13.2, Platelet Count 174, Mean Platelet Volume 11.0, Immature Granulocyte % (Auto) 0, Neutrophils (%) (Auto) 59, Lymphocytes (%) (Auto) 27, Monocytes (%) (Auto) 13H, Eosinophils (%) (Auto) 0, Basophils (%) (Auto) 0, Neutrophils # (Auto) 2.2, Lymphocytes # (Auto) 1.0, Monocytes # (Auto) 0.5, Eosinophils # (Auto) 0.0, Basophils # (Auto) 0.0, Immature Granulocyte # (Auto) 0.0, Sodium Level 140, Potassium Level 3.9, Chloride Level 108H, Carbon Dioxide Level 23, Anion Gap 9, Blood Urea Nitrogen 19H, Creatinine 0.76, Estimat Glomerular Filtration Rate 94, BUN/Creatinine Ratio 25, Glucose Level 94, Calcium Level 8.1L, Serum Test, Qualitative NEGATIVE 02/19/22 06:18: Conclusion/Plan Left ureteral stone Consult urology Continue pain management Continue IVF Continue urine straining Hydroureternephrosis Consult urology Cholelithiasis Monitor symptoms and lab work EMILY SANTANA DO 02/19/222109: History of Present Illness History of Present Illness Reason for visit/HPI CC: Flank pain HPI: This is a 51 yr old female who came into the ER with flank pain and pain on urination. She was found to have a 4 mm stone. She was placed on aggressive IV fluids, antiemetics, and pain medication with good results. She underwent cystoscopy by Dr. Wang revealing no evidence of the stone, of which she passed earlier in the day. She was placed on antibiotics empirically. Date of Admission 02/18/2022 Date of Discharge 02/20/2022 Time Seen by Provider: 15:45 Allergies and Home Medications Allergies Coded Allergies: Penicillins (Verified Allergy, Unknown, 07/07/17) Sulfa (Sulfonamide Antibiotics) (Verified Allergy, Unknown, 07/07/17) acetaminophen (Verified Allergy, Unknown, LETHARIC, 07/07/17) arginine (Verified Allergy, Unknown, ANAPHYLAXIS, 07/07/17) ascorbic acid (Verified Allergy, Unknown, ANAPHYLAXIS, 07/07/17) citric acid (Verified Allergy, Unknown, ANAPHYLAXIS, 07/07/17) diphenhydramine (Verified Allergy, Unknown, ANAPHYLAXIS, 07/07/17) doxepin (Verified Allergy, Unknown, 07/07/17) egg (Verified Allergy, Unknown, 07/07/17) hydrocodone (Verified Allergy, Unknown, LETHARIC, 07/07/17) lidocaine (Verified Allergy, Unknown, 07/07/17) malic acid (Verified Allergy, Unknown, ANAPHYLAXIS, 07/07/17) meloxicam (Verified Allergy, Unknown, 07/07/17) meperidine (Verified Allergy, Unknown, 07/07/17) vitamin E (d-alpha tocopherol) (Verified Allergy, Unknown, ANAPHYLAXIS, 07/07/17) whey (Verified Allergy, Unknown, ANAPHYLAXIS, 07/07/17) Patient Home Medication List Home Medication List Reviewed: Yes Cholecalciferol (Vitamin D3) (Vitamin D3) 50 Mcg (2000 Unit) Capsule, 50 MCG PO DAILY, (Reported) Entered as Reported by: JEIMY DUQUE on 02/19/22 1710 Last Action: Reviewed Estradiol (Estradiol Tablet) 1 Mg Tablet, 1 MG PO DAILY, (Reported) Entered as Reported by: JEIMY DUQUE on 02/19/221446 Last Action: Reviewed Lycopene/Lut Xt/Fruit Extracts (Fruit & Vegetable Daily [facility]) 5 Mg-6 Mg-150 Mg Capsule, 1 EACH PO DAILY, (Reported) Entered as Reported by: JEIMY DUQUE on 02/19/221446 Last Action: Reviewed Medroxyprogesterone Acetate (Medroxyprogesterone Acetate) 2.5 Mg Tablet, 2.5 MG PO DAILY, (Reported) Entered as Reported by: JEIMY DUQUE on 02/19/221446 Last Action: Reviewed Mirabegron (Myrbetriq) 25 Mg Tab.er.24h, 25 MG PO DAILY, (Reported) Entered as Reported by: JEIMY DUQUE on 02/19/221446 Last Action: Reviewed Turmeric Root Extract (Turmeric) 500 Mg Tablet, 500 MG PO DAILY, (Reported) Entered as Reported by: JEIMY DUQUE on 02/19/221446 Last Action: Reviewed Vitamin B Complex (B Complex) 1 Each Tablet, 1 EACH PO DAILY, (Reported) Entered as Reported by: JEIMY DUQUE on 02/19/221446 Last Action: Reviewed Zinc Gluconate (Zinc) 50 Mg Tablet, 50 MG PO DAILY, (Reported) Entered as Reported by: JEIMY DUQUE on 02/19/221446 Last Action: Reviewed Discontinued Medications Estrog Conj/Medryoxyprog Acet (Prempro 0.625-2.5 mg Tablet) 1 Tab Tab, 1 TAB PO DAILY, (Reported) Discontinued Reason: No Longer Taking Entered as Reported by: JACINTO BARRAZA on 07/07/17 1227 Last Action: Discontinued Hydrocodone Bit/Acetaminophen (HYDROcodone/APAP 5 MG/325 MG TAB) 1 Tab Tab, 1 TAB PO Q4H PRN for PAIN-MILD (1-4) Discontinued Reason: No Longer Taking Prescribed by: KARLY LAWLER on 02/18/222140 Last Action: Discontinued Levofloxacin (Levofloxacin) 500 Mg Tablet, 500 MG PO DAILY Discontinued Reason: No Longer Taking Prescribed by: KARLY LAWLER on 02/18/222138 Last Action: Discontinued Ondansetron (Ondansetron Odt) 4 Mg Tab.rapdis, 4 MG PO Q6H PRN for NAUSEA-1ST LINE Discontinued Reason: No Longer Taking Prescribed by: KARLY LAWLER on 02/18/222138 Last Action: Discontinued Tamsulosin HCl (Flomax) 0.4 Mg Cap, 0.4 MG PO DAILY Discontinued Reason: No Longer Taking Prescribed by: KARLY LAWLER on 02/18/222138 Last Action: Discontinued Review of Systems Constitutional: see HPI, malaise, weakness Physical Exam General Appearance: WD/WN, Anxious Eyes: Bilateral Eye Normal Inspection, Bilateral Eye PERRL, Bilateral Eye EOMI HEENT: PERRL/EOMI, Normal ENT Inspection, Pharynx Normal Neck: Full Range of Motion, Normal Inspection, Non Tender, Supple, Carotid Bruit Respiratory: Chest Non Tender, Lungs Clear, Normal Breath Sounds, No Accessory Muscle Use, No Respiratory Distress Cardiovascular: Regular Rate, Rhythm, No Edema, No Gallop, No JVD, No Murmur, Normal Peripheral Pulses Gastrointestinal: Normal Bowel Sounds, No Organomegaly, No Pulsatile Mass, Non Tender, Soft Back: Normal Inspection, No CVA Tenderness, No Vertebral Tenderness Extremity: Normal Capillary Refill, Normal Inspection, Normal Range of Motion, Non Tender, No Calf Tenderness, No Pedal Edema Neurologic/Psychiatric: Alert, Oriented x3, No Motor/Sensory Deficits, Normal Mood/Affect Skin: Normal Color, Warm/Dry Lymphatic: No Adenopathy Short Stay Diagnosis Discharge Diagnosis-Short Stay Admission Diagnosis: Renal colic due to stone Pyelonephritis Final Discharge Diagnosis: Renal colic due to stone Pyelonephritis Conclusion Conclusion/Plan Urology appreciated Supervisory-Addendum Brief Verification & Attestation Participated in pt care: history, MDM, physical Personally performed: exam, history, MDM, supervision of care Care discussed with: Medical Student Procedures: n/a Results interpretation: Verified all documentation Verification and Attestation of Medical Student E/M Service A medical student performed and documented this service in my presence. I reviewed and verified all information documented by the medical student and made modifications to such information, when appropriate. I personally performed the physical exam and medical decision making. Emily Santana Feb 19, 2022,21:11 [place] Feb 19, 2022 14:16 EMILY SANTANA DO Feb 19, 2022 21:10
[2022-02-19] MEDS ORDERED: LYCO1CAP2 PO (14:47)
[2022-02-19] MEDS ORDERED: MIRA25TA PO (14:47)
[2022-02-19] MEDS ORDERED: TURM500T PO (14:47)
[2022-02-19] MEDS ORDERED: CHOL20002 PO (14:47)
[2022-02-19] MEDS ORDERED: ZINC50TA11 PO (14:47)
[2022-02-19] MEDS ORDERED: VITA-189 PO (14:47)
[2022-02-19] MEDS ORDERED: MEDR2.5T6 PO (14:47)
[2022-02-19] MEDS ORDERED: ESTR1TAB24 PO (14:47)
[2022-02-19] MEDS: TAMSULOSIN 0.4 MG (FLOMAX) CAP PO SCH (17:45)
--- NOTE | 2022-02-19 19:23 | OPERATIVE REPORT ---
DATE OF SERVICE: 02/19/2022 PREOPERATIVE DIAGNOSIS: Possible left distal ureteral stone. POSTOPERATIVE DIAGNOSIS: Possible left distal ureteral stone, "passed." OPERATION PERFORMED: Left ureteroscopy. SURGEON: Chino Russell MD ANESTHESIA: Spinal. COMPLICATIONS: None. DESCRIPTION OF PROCEDURE: Under satisfactory spinal anesthesia, the patient in lithotomy position, genitalia were prepped and draped in the usual sterile fashion. Cystoscope was introduced under vision and noted a 2+ cystocele and some rectocele. The bladder was inspected and was completely normal. There was clear effluxes. Using the foroblique lens, I dilated the left ureteral orifice intramural portion to accommodate a 6.9-Slovenian semi-rigid ureteroscope, went up all the way to the proximal ureter up and down. There was no stone. I could see the area in the intramural portion of the ureter where the stone must have been. I removed the ureteroscope. Valsalva maneuver was positive and Doe test was positive. I emptied the bladder, removed the cystoscope. The patient tolerated the procedure and anesthesia well and was sent to recovery room in stable condition. Job ID: [id number] DocumentID: [id number] Dictated Date: 02/19/2022 11:43:46 Film Recordist Date: 02/19/2022 19:22:57 Dictated By: CHINO RUSSELL MD
[2022-02-19] MEDS: ONDANSETRON 4 MG/2 ML (SDV) Z0FRAN IV PRN (19:25)
[2022-02-19] MEDS: KETOROLAC 30 MG/ML VIAL IV PRN (21:11)
[2022-02-20] VITALS (7 sets, daily range): BP systolic 96–115; BP diastolic 57–74
[2022-02-20] MEDS: NS IV 1000 ML 1,000 ML IV SCH ×2 (03:13→11:50)
[2022-02-20 06:17] LABS: POTASSIUM 3.9 MMOL/L (3.6-5.0)
[2022-02-20 06:20] LABS: TOTAL PROTEIN 4.9 GM/DL (6.4-8.2)
[2022-02-20 06:22] LABS: BILIRUBIN,TOTAL 0.2 MG/DL (0.1-1.0)
[2022-02-20 06:23] LABS: BASOPHILS % (AUTO) 0 % (0-10); CREATININE SERUM 0.66 MG/DL (0.60-1.30); EOSINOPHILS % (AUTO) 1 % (0-10); HEMATOCRIT 35 % (35-52); HEMOGLOBIN 11.3 g/dL (11.5-16.0); LYMPHOCYTES # (AUTO) 1.8 10^3/uL (1.0-4.0); LYMPHOCYTES % (AUTO) 53 % (12-44); MEAN CORPUSCULAR HEMOGLOBIN 31 pg (25-34); MEAN CORPUSCULAR HGB CONC 33 g/dL (32-36); MEAN CORPUSCULAR VOLUME 94 fL (80-99); MEAN PLATELET VOLUME 11.3 fL (9.0-12.2); MONOCYTES # (AUTO) 0.3 10^3/uL (0.0-1.0); MONOCYTES % (AUTO) 9 % (0-12); NEUTROPHILS # (AUTO) 1.2 10^3/uL (1.8-7.8); NEUTROPHILS % (AUTO) 37 % (42-75); PLATELET COUNT 148 10^3/uL (130-400); WHITE BLOOD COUNT 3.3 10^3/uL (4.3-11.0)
[2022-02-20] MEDS: PANTOPRAZOLE 40 MG (PROTONIX) VIAL IV SCH (08:42)
[2022-02-20] MEDS: KETOROLAC 30 MG/ML VIAL IV PRN ×2 (08:43→17:26)
[2022-02-20] MEDS: ONDANSETRON 4 MG/2 ML (SDV) Z0FRAN IV PRN (10:09)
[2022-02-20] MEDS: ENOXAPARIN 40 MG/0.4 ML (LOVENOX) SYR SC SCH (11:21)
--- NOTE | 2022-02-20 16:23 | Progress Note ---
[place] S[place] 02/20/22 1623: Subjective Date Seen by a Provider: Feb 20, 2022 Time Seen by a Provider: 16:17 Subjective/Events-last exam Patient has passed stone She is having significant pain post ureterscopy States her bladder is having intense spasm Pain medication does seem to control the pain Left flank is tender to palpation Did sleep well Focused Exam Lactate Level 02/20/22 12:41: Lactic Acid Level 1.35 Lactic Acid Level Laboratory Tests Test 02/20/22 12:41 Lactic Acid Level 1.35 MMOL/L (0.50-2.00) Objective Exam Last Set of Vital Signs Vital Signs Date Time Temp Pulse Resp B/P (MAP) Pulse Ox O2 Delivery O2 Flow Rate FiO2 02/20/22 11:23 37.2 65 18 115/74 (88) 96 Room Air 02/20/22 09:25 21 Capillary Refill : Less Than 3 Seconds I&O Intake and Output 02/20/22 00:00 Intake Total 3290 ml Output Total 1250 ml Balance 2040 ml Intake Oral 240 ml IV Total 3050 ml Output Urine Total 1250 ml Daily Weight Change No General: Alert, Oriented X3, Cooperative, Mild Distress HEENT: PERRLA Neck: Supple, No JVD Lungs: Clear to Auscultation Heart: Regular Rate, No Murmurs Abdomen: Normal Bowel Sounds, Soft Extremities: No Clubbing, No Cyanosis Skin: No Rashes, No Breakdown Neuro: Normal Gait, Normal Tone Results Lab Laboratory Tests 02/20/22 05:45: White Blood Count 3.3L, Red Blood Count 3.71L, Hemoglobin 11.3L, Hematocrit 35, Mean Corpuscular Volume 94, Mean Corpuscular Hemoglobin 31, Mean Corpuscular Hemoglobin Concent 33, Red Cell Distribution Width 13.2, Platelet Count 148, Mean Platelet Volume 11.3, Immature Granulocyte % (Auto) 0, Neutrophils (%) (Auto) 37L, Lymphocytes (%) (Auto) 53H, Monocytes (%) (Auto) 9, Eosinophils (%) (Auto) 1, Basophils (%) (Auto) 0, Neutrophils # (Auto) 1.2L, Lymphocytes # (Auto) 1.8, Monocytes # (Auto) 0.3, Eosinophils # (Auto) 0.0, Basophils # (Auto) 0.0, Immature Granulocyte # (Auto) 0.0, Erythrocyte Sedimentation Rate 7, Sodium Level 141, Potassium Level 3.9, Chloride Level 110H, Carbon Dioxide Level 23, Anion Gap 8, Blood Urea Nitrogen 11, Creatinine 0.66, Estimat Glomerular Filtration Rate 105, BUN/Creatinine Ratio 17, Glucose Level 92, Calcium Level 8.0L, Corrected Calcium 8.8, Total Bilirubin 0.2, Aspartate Amino Transf (AST/SGOT) 29, Alanine Aminotransferase (ALT/SGPT) 25, Alkaline Phosphatase 40, C-Reactive Protein High Sensitivity 0.06, Total Protein 4.9L, Albumin 3.0L 02/20/22 12:41: Lactic Acid Level 1.35 Microbiology 02/18/22 Urine Culture - Final, Complete >=3 Gram Positive Isolates Assessment/Plan Assessment/Plan Assess & Plan/Chief Complaint Renal colic due to stone- Passed 02-19-2022 Pyelonephritis Continue with levofloxacin S/P ureterscopy Post operative pain Continue to monitor Controlled thus far with tramadol EMILY SANTANA DO 02/21/22 0541: Subjective Subjective/Events-last exam Patient having severe pain Nausea also All labs revealed improved and normal Supportive care will continue Pain meds will continue Signs are out of proportion to the acute issue and subsequent treatment Review of Systems General: Fatigue, Malaise Gastrointestinal: Abdominal Pain Objective Exam General: Alert, Oriented X3, Cooperative, Mild Distress Lungs: Clear to Auscultation Heart: Regular Rate Psych/Mental Status: Mental Status NL Assessment/Plan Assessment/Plan Assess & Plan/Chief Complaint Levaquin Supportive care Supervisory-Addendum Brief Verification & Attestation Participated in pt care: history, MDM, physical Personally performed: exam, history, MDM, supervision of care Care discussed with: Medical Student Procedures: n/a Results interpretation: Verified all documentation Verification and Attestation of Medical Student E/M Service A medical student performed and documented this service in my presence. I reviewed and verified all information documented by the medical student and made modifications to such information, when appropriate. I personally performed the physical exam and medical decision making. Emily Santana, Feb 21, 2022,05:39 [place] Feb 20, 2022 16:23 EMILY SANTANA DO Feb 21, 2022 05:41
[2022-02-20] MEDS: TAMSULOSIN 0.4 MG (FLOMAX) CAP PO SCH (17:21)
[2022-02-21] VITALS (7 sets, daily range): BP systolic 93–134; BP diastolic 59–84
[2022-02-21] MEDS: NS IV 1000 ML 1,000 ML IV SCH (01:37)
[2022-02-21] MEDS: KETOROLAC 30 MG/ML VIAL IV PRN (04:34)
[2022-02-21 06:59] LABS: BASOPHILS % (AUTO) 0 % (0-10); EOSINOPHILS # (AUTO) 0.1 10^3/uL (0.0-0.3); EOSINOPHILS % (AUTO) 2 % (0-10); HEMATOCRIT 38 % (35-52); HEMOGLOBIN 12.2 g/dL (11.5-16.0); LYMPHOCYTES # (AUTO) 1.9 10^3/uL (1.0-4.0); LYMPHOCYTES % (AUTO) 48 % (12-44); MEAN CORPUSCULAR HEMOGLOBIN 30 pg (25-34); MEAN CORPUSCULAR HGB CONC 32 g/dL (32-36); MEAN CORPUSCULAR VOLUME 94 fL (80-99); MEAN PLATELET VOLUME 11.1 fL (9.0-12.2); MONOCYTES # (AUTO) 0.3 10^3/uL (0.0-1.0); MONOCYTES % (AUTO) 9 % (0-12); NEUTROPHILS # (AUTO) 1.6 10^3/uL (1.8-7.8); NEUTROPHILS % (AUTO) 41 % (42-75); PLATELET COUNT 153 10^3/uL (130-400)
[2022-02-21 07:07] LABS: ALBUMIN 3.3 GM/DL (3.2-4.5)
[2022-02-21 07:08] LABS: POTASSIUM 3.8 MMOL/L (3.6-5.0)
[2022-02-21 07:09] LABS: CALCIUM 8.5 MG/DL (8.5-10.1)
[2022-02-21 07:10] LABS: TOTAL PROTEIN 5.5 GM/DL (6.4-8.2)
[2022-02-21 07:12] LABS: BILIRUBIN,TOTAL 0.4 MG/DL (0.1-1.0)
[2022-02-21 07:13] LABS: CREATININE SERUM 0.66 MG/DL (0.60-1.30)
[2022-02-21] MEDS: PANTOPRAZOLE 40 MG (PROTONIX) VIAL IV SCH (08:56)
[2022-02-21] MEDS: ENOXAPARIN 40 MG/0.4 ML (LOVENOX) SYR SC SCH (11:03)
[2022-02-21] MEDS ORDERED: polyethylene glycoL POWDER 17 GM (MIRALAX) PACK PO NR (11:30)
[2022-02-21] MEDS ORDERED: BELLADONNA ALK/OPIUM (B & O) 30 MG SUPP PR NR (11:30)
[2022-02-21] MEDS ORDERED: LACTULOSE SYRUP 10GM/15ML (ENULOSE) 30ML UDC PO NR (11:30)
[2022-02-21] MEDS ORDERED: BELLADONNA ALK/OPIUM (B & O) 30 MG SUPP PR PRN (11:30)
--- NOTE | 2022-02-21 12:24 | Progress Note ---
[place] SWEET 02/21/22 1224: Subjective Date Seen by a Provider: Feb 21, 2022 Time Seen by a Provider: 12:18 Subjective/Events-last exam 51 year old white female on day her 4th day in the hospital for a ureter stone and pyelonephritis. She arrived to the ER on 02-18-2022 with complaints of left lo wer quadrant abdominal pain that started around 1-2pm that day, and was later admitted. States her pain was a sudden onset and sharp, stabbing 10/10 pain with painful burning urination. Pain radiated into left flank and associated with nausea and vomiting. She subsequently had imagining ordered. Abdominal CT without contrast came back with a 4 mm mildly obstructive stone in left UVJ, with associated hydroureteronephrosis. She has no prior history of stones. On 02-19-2022 she under went a ureterscopy and passed the stone and was sent for pathology. Since the ureterscopy she has had significant pain (7/10) that has been constant and bladder spasms that happen sporadically. As of today her pain has been well controlled with toradol and will be given a Belladonna suppository to help with the bladder spasms. She has yet to have a bowel movement since the ureterscopy, but has been eating well and urinating without pain. She is able to ambulate a few hundred feet but feels weak after and can have random bladder spasms while walking. She has no other concerns at this time today. Focused Exam Lactate Level 02/20/22 12:41: Lactic Acid Level 1.35 Objective Exam Last Set of Vital Signs Vital Signs Date Time Temp Pulse Resp B/P (MAP) Pulse Ox O2 Delivery O2 Flow Rate FiO2 02/21/22 11:20 37.2 70 18 125/84 (98) 99 Room Air 02/20/22 09:25 21 Capillary Refill : Less Than 3 Seconds I&O Intake and Output 02/21/22 00:00 Intake Total 3180 ml Output Total 200 ml Balance 2980 ml Intake Oral 1180 ml IV Total 2000 ml Output Urine Total 200 ml # Voids 10 # Bowel Movements 1 General: Alert, Oriented X3, Cooperative HEENT: PERRLA Neck: Supple, No JVD Lungs: Clear to Auscultation Heart: Regular Rate, No Murmurs Abdomen: Normal Bowel Sounds, Soft Extremities: No Clubbing, No Cyanosis Skin: No Rashes, No Breakdown Neuro: Normal Gait, Normal Speech, Normal Tone Results Lab Laboratory Tests 02/20/22 12:41: Lactic Acid Level 1.35 02/21/22 06:46: White Blood Count 4.0L, Red Blood Count 4.02, Hemoglobin 12.2, Hematocrit 38, Mean Corpuscular Volume 94, Mean Corpuscular Hemoglobin 30, Mean Corpuscular Hemoglobin Concent 32, Red Cell Distribution Width 13.0, Platelet Count 153, Mean Platelet Volume 11.1, Immature Granulocyte % (Auto) 0, Neutrophils (%) (Auto) 41L, Lymphocytes (%) (Auto) 48H, Monocytes (%) (Auto) 9, Eosinophils (%) (Auto) 2, Basophils (%) (Auto) 0, Neutrophils # (Auto) 1.6L, Lymphocytes # (Auto) 1.9, Monocytes # (Auto) 0.3, Eosinophils # (Auto) 0.1, Basophils # (Auto) 0.0, Immature Granulocyte # (Auto) 0.0, Sodium Level 143, Potassium Level 3.8, Chloride Level 107, Carbon Dioxide Level 26, Anion Gap 10, Blood Urea Nitrogen 11, Creatinine 0.66, Estimat Glomerular Filtration Rate 105, BUN/Creatinine Ratio 17, Glucose Level 98, Calcium Level 8.5, Corrected Calcium 9.1, Total Bilirubin 0.4, Aspartate Amino Transf (AST/SGOT) 28, Alanine Aminotransferase (ALT/SGPT) 31, Alkaline Phosphatase 46, Total Protein 5.5L, Albumin 3.3 Microbiology 02/18/22 Urine Culture - Final, Complete >=3 Gram Positive Isolates Assessment/Plan Assessment/Plan Assess & Plan/Chief Complaint Renal colic due to stone- Passed 02-19-2022 Pyelonephritis Continue with levofloxacin S/P ureterscopy Post operative pain Continue to monitor Controlled thus far with toradol Bladder spasms Administer Belladonna suppository Constipation Administer polyethylene glycol EMILY SANTANA DO 02/22/22 0539: Subjective Subjective/Events-last exam Pt is doing a lot better Will initiate Belladonna suppository for bladder spasms Levaquin maintained for pyelonephritis Objective Exam General: Alert, Oriented X3, Cooperative, No Acute Distress Psych/Mental Status: Mental Status NL, Mood NL Assessment/Plan Assessment/Plan Assess & Plan/Chief Complaint Supportive care Supervisory-Addendum Brief Verification & Attestation Participated in pt care: history, MDM, physical Personally performed: exam, history, MDM, supervision of care Care discussed with: Medical Student Procedures: n/a Results interpretation: Verified all documentation Verification and Attestation of Medical Student E/M Service A medical student performed and documented this service in my presence. I reviewed and verified all information documented by the medical student and made modifications to such information, when appropriate. I personally performed the physical exam and medical decision making. Emily Santana, Feb 22, 2022,05:38 [place] SWEET Feb 21, 2022 12:24 EMILY SANTANA DO Feb 22, 2022 05:39
[2022-02-21] MEDS: TAMSULOSIN 0.4 MG (FLOMAX) CAP PO SCH (17:25)
[2022-02-21] MEDS: LACTULOSE SYRUP 10GM/15ML (ENULOSE) 30ML UDC PO SCH (20:46)
[2022-02-21] MEDS ORDERED: polyethylene glycoL POWDER 17 GM (MIRALAX) PACK PO SCH (21:00)
[2022-02-22 03:11] VITALS: BP 96/61
[2022-02-22 07:17] LABS: BASOPHILS % (AUTO) 0 % (0-10); EOSINOPHILS # (AUTO) 0.1 10^3/uL (0.0-0.3); EOSINOPHILS % (AUTO) 2 % (0-10); HEMATOCRIT 37 % (35-52); HEMOGLOBIN 12.1 g/dL (11.5-16.0); LYMPHOCYTES # (AUTO) 2.1 10^3/uL (1.0-4.0); LYMPHOCYTES % (AUTO) 40 % (12-44); MEAN CORPUSCULAR HEMOGLOBIN 31 pg (25-34); MEAN CORPUSCULAR HGB CONC 33 g/dL (32-36); MEAN CORPUSCULAR VOLUME 93 fL (80-99); MONOCYTES # (AUTO) 0.5 10^3/uL (0.0-1.0); MONOCYTES % (AUTO) 9 % (0-12); NEUTROPHILS # (AUTO) 2.6 10^3/uL (1.8-7.8); NEUTROPHILS % (AUTO) 49 % (42-75); PLATELET COUNT 163 10^3/uL (130-400); WHITE BLOOD COUNT 5.3 10^3/uL (4.3-11.0)
[2022-02-22 07:33] LABS: ALBUMIN 3.3 GM/DL (3.2-4.5); POTASSIUM 4.1 MMOL/L (3.6-5.0)
[2022-02-22 07:34] LABS: CALCIUM 8.7 MG/DL (8.5-10.1)
[2022-02-22 07:35] LABS: TOTAL PROTEIN 5.5 GM/DL (6.4-8.2)
[2022-02-22 07:37] LABS: BILIRUBIN,TOTAL 0.3 MG/DL (0.1-1.0)
[2022-02-22 07:39] LABS: CREATININE SERUM 0.7 MG/DL (0.60-1.30)
[2022-02-22 07:41] VITALS: BP 108/71
[2022-02-22] MEDS: PANTOPRAZOLE 40 MG (PROTONIX) VIAL IV SCH (08:01)
[2022-02-22] MEDS: LACTULOSE SYRUP 10GM/15ML (ENULOSE) 30ML UDC PO SCH (08:01)
[2022-02-22] MEDS: ONDANSETRON 4 MG/2 ML (SDV) Z0FRAN IV PRN (09:10)
[2022-02-22] MEDS: ENOXAPARIN 40 MG/0.4 ML (LOVENOX) SYR SC SCH (10:25)
[2022-02-22] MEDS ORDERED: BISACODYL 10 MG SUPP (DULCOLAX) ONE (10:27)
[2022-02-22] MEDS ORDERED: TMSL.4C PO (10:29)
[2022-02-22] MEDS ORDERED: LEVO-55 PO (10:29)
[2022-02-22] MEDS ORDERED: PHEN-640 PO (10:29)
[2022-02-22] MEDS ORDERED: TRAM-42 PO (10:29)
[2022-02-22] MEDS ORDERED: ONDA4TAB11 PO (10:29)
[2022-02-22] MEDS ORDERED: BISACODYL 10 MG SUPP (DULCOLAX) PR ONE (10:30)
--- NOTE | 2022-02-22 10:33 | Discharge Summary ---
Diagnosis/Chief Complaint Date of Admission Feb 20, 2022 at 12:17 Date of Discharge Discharge Date: Feb 22, 2022 Discharge Diagnosis Renal colic due to stone- Passed 02-19-2022 Pyelonephritis Continue with levofloxacin S/P ureterscopy Post operative pain Continue to monitor Controlled thus far with toradol Bladder spasms Administer Belladonna suppository Constipation Administer polyethylene glycol Reason Hospital Visit CC: Flank pain HPI: This is a 51 yr old female who came into the ER with flank pain and pain on urination. She was found to have a 4 mm stone. She was placed on aggressive IV fluids, antiemetics, and pain medication with good results. She underwent cystoscopy by Dr. Wang revealing no evidence of the stone, of which she passed earlier in the day. She was placed on antibiotics empirically. Discharge Summary Discharge Physical Examination Allergies: Coded Allergies: Penicillins (Verified Allergy, Unknown, 07/07/17) Sulfa (Sulfonamide Antibiotics) (Verified Allergy, Unknown, 07/07/17) acetaminophen (Verified Allergy, Unknown, LETHARIC, 07/07/17) arginine (Verified Allergy, Unknown, ANAPHYLAXIS, 07/07/17) ascorbic acid (Verified Allergy, Unknown, ANAPHYLAXIS, 07/07/17) citric acid (Verified Allergy, Unknown, ANAPHYLAXIS, 07/07/17) diphenhydramine (Verified Allergy, Unknown, ANAPHYLAXIS, 07/07/17) doxepin (Verified Allergy, Unknown, 07/07/17) egg (Verified Allergy, Unknown, 07/07/17) hydrocodone (Verified Allergy, Unknown, LETHARIC, 07/07/17) lidocaine (Verified Allergy, Unknown, 07/07/17) malic acid (Verified Allergy, Unknown, ANAPHYLAXIS, 07/07/17) meloxicam (Verified Allergy, Unknown, 07/07/17) meperidine (Verified Allergy, Unknown, 07/07/17) vitamin E (d-alpha tocopherol) (Verified Allergy, Unknown, ANAPHYLAXIS, 07/07/17) Vitals & I&Os Vital Signs Date Time Temp Pulse Resp B/P (MAP) Pulse Ox O2 Delivery O2 Flow Rate FiO2 02/22/22 10:49 36.4 67 16 108/71 98 Room Air 0.00 02/20/22 09:25 21 General Appearance: Alert, Oriented X3, Cooperative Respiratory: Clear to Auscultation Hospital Course Was the Problem List Reviewed?: Yes Lengthy course after she was admitted for renal colic and stone with hydronephrosis for IVF and pain control. Dr Wang performed w/u which revealed spontaneous passage of the stone and non remained so she was continued on IVF and Abx and supportive care for a longer than expected course due to severe pain and nausea which eventually resolved and patient was deemed stable for DC with close f/u with ms and Dr Wang. Labs (last 24 hrs) Laboratory Tests 02/18/22 19:07: White Blood Count 5.9, Red Blood Count 4.67, Hemoglobin 14.3, Hematocrit 43, Mean Corpuscular Volume 93, Mean Corpuscular Hemoglobin 31, Mean Corpuscular Hemoglobin Concent 33, Red Cell Distribution Width 13.3, Platelet Count 196, Mean Platelet Volume 10.9, Immature Granulocyte % (Auto) 0, Neutrophils (%) (Auto) 82H, Lymphocytes (%) (Auto) 11L, Monocytes (%) (Auto) 7, Eosinophils (%) (Auto) 0, Basophils (%) (Auto) 0, Neutrophils # (Auto) 4.8, Lymphocytes # (Auto) 0.6L, Monocytes # (Auto) 0.4, Eosinophils # (Auto) 0.0, Basophils # (Auto) 0.0, Immature Granulocyte # (Auto) 0.0, Urine Color YELLOW, Urine Clarity CLOUDY, Urine pH 7.5, Urine Specific [place] 1.015L, Urine Protein TRACEH, Urine Glucose (UA) NEGATIVE, Urine Ketones TRACEH, Urine Nitrite NEGATIVE, Urine Bilirubin NEGATIVE, Urine Urobilinogen 0.2, Urine Leukocyte Esterase NEGATIVE, Urine RBC (Auto) 2+H, Urine RBC 10-25H, Urine WBC NONE, Urine Squamous Epithelial Cells 0- 2, Urine Renal Epithelial Cells NONE, Urine Crystals NONE, Urine Bacteria LARGEH , Urine Casts NONE, Urine Mucus NEGATIVE, Urine Culture Indicated YES, Sodium Level 141, Potassium Level 4.5, Chloride Level 105, Carbon Dioxide Level 21, Anion Gap 15H, Blood Urea Nitrogen 19H, Creatinine 0.84, Estimat Glomerular Filtration Rate 83, BUN/Creatinine Ratio 23, Glucose Level 121H, Calcium Level 9.1, Corrected Calcium 9.0, Total Bilirubin 0.2, Aspartate Amino Transf (AST/SGOT) 52H, Alanine Aminotransferase (ALT/SGPT) 37, Alkaline Phosphatase 57, Total Creatine Kinase 490H, C-Reactive Protein High Sensitivity 0.02, Total Protein 7.4, Albumin 4.1 02/19/22 05:36: White Blood Count 3.7L, Red Blood Count 3.94, Hemoglobin 11.9, Hematocrit 37, Mean Corpuscular Volume 93, Mean Corpuscular Hemoglobin 30, Mean Corpuscular Hemoglobin Concent 33, Red Cell Distribution Width 13.2, Platelet Count 174, Mean Platelet Volume 11.0, Immature Granulocyte % (Auto) 0, Neutrophils (%) (Auto) 59, Lymphocytes (%) (Auto) 27, Monocytes (%) (Auto) 13H, Eosinophils (%) (Auto) 0, Basophils (%) (Auto) 0, Neutrophils # (Auto) 2.2, Lymphocytes # (Auto) 1.0, Monocytes # (Auto) 0.5, Eosinophils # (Auto) 0.0, Basophils # (Auto) 0.0, Immature Granulocyte # (Auto) 0.0, Sodium Level 140, Potassium Level 3.9, Chloride Level 108H, Carbon Dioxide Level 23, Anion Gap 9, Blood Urea Nitrogen 19H, Creatinine 0.76, Estimat Glomerular Filtration Rate 94, BUN/Creatinine Ratio 25, Glucose Level 94, Calcium Level 8.1L, Serum Test, Qualitative NEGATIVE 02/19/22 06:18: 02/20/22 05:45: White Blood Count 3.3L, Red Blood Count 3.71L, Hemoglobin 11.3L, Hematocrit 35, Mean Corpuscular Volume 94, Mean Corpuscular Hemoglobin 31, Mean Corpuscular Hemoglobin Concent 33, Red Cell Distribution Width 13.2, Platelet Count 148, Mean Platelet Volume 11.3, Immature Granulocyte % (Auto) 0, Neutrophils (%) (Auto) 37L, Lymphocytes (%) (Auto) 53H, Monocytes (%) (Auto) 9, Eosinophils (%) (Auto) 1, Basophils (%) (Auto) 0, Neutrophils # (Auto) 1.2L, Lymphocytes # (Auto) 1.8, Monocytes # (Auto) 0.3, Eosinophils # (Auto) 0.0, Basophils # (Auto) 0.0, Immature Granulocyte # (Auto) 0.0, Sodium Level 141, Potassium Level 3.9, Chloride Level 110H, Carbon Dioxide Level 23, Anion Gap 8, Blood Urea Nitrogen 11, Creatinine 0.66, Estimat Glomerular Filtration Rate 105, BUN/Creatinine Ratio 17, Glucose Level 92, Calcium Level 8.0L, Corrected Calcium 8.8, Total Bilirubin 0.2, Aspartate Amino Transf (AST/SGOT) 29, Alanine Aminotransferase (ALT/SGPT) 25, Alkaline Phosphatase 40, C-Reactive Protein High Sensitivity 0.06, Total Protein 4.9L, Albumin 3.0L, Erythrocyte Sedimentation Rate 7 02/20/22 12:41: Lactic Acid Level 1.35 02/21/22 06:46: White Blood Count 4.0L, Red Blood Count 4.02, Hemoglobin 12.2, Hematocrit 38, Mean Corpuscular Volume 94, Mean Corpuscular Hemoglobin 30, Mean Corpuscular Hemoglobin Concent 32, Red Cell Distribution Width 13.0, Platelet Count 153, Mean Platelet Volume 11.1, Immature Granulocyte % (Auto) 0, Neutrophils (%) (Auto) 41L, Lymphocytes (%) (Auto) 48H, Monocytes (%) (Auto) 9, Eosinophils (%) (Auto) 2, Basophils (%) (Auto) 0, Neutrophils # (Auto) 1.6L, Lymphocytes # (Auto) 1.9, Monocytes # (Auto) 0.3, Eosinophils # (Auto) 0.1, Basophils # (Auto) 0.0, Immature Granulocyte # (Auto) 0.0, Sodium Level 143, Potassium Level 3.8, Chloride Level 107, Carbon Dioxide Level 26, Anion Gap 10, Blood Urea Nitrogen 11, Creatinine 0.66, Estimat Glomerular Filtration Rate 105, BUN/Creatinine Ratio 17, Glucose Level 98, Calcium Level 8.5, Corrected Calcium 9.1, Total Bilirubin 0.4, Aspartate Amino Transf (AST/SGOT) 28, Alanine Aminotransferase (ALT/SGPT) 31, Alkaline Phosphatase 46, Total Protein 5.5L, Albumin 3.3 02/22/22 06:59: White Blood Count 5.3, Red Blood Count 3.97, Hemoglobin 12.1, Hematocrit 37, Mean Corpuscular Volume 93, Mean Corpuscular Hemoglobin 31, Mean Corpuscular Hemoglobin Concent 33, Red Cell Distribution Width 12.8, Platelet Count 163, Mean Platelet Volume 11.0, Immature Granulocyte % (Auto) 0, Neutrophils (%) (Auto) 49, Lymphocytes (%) (Auto) 40, Monocytes (%) (Auto) 9, Eosinophils (%) (Auto) 2, Basophils (%) (Auto) 0, Neutrophils # (Auto) 2.6, Lymphocytes # (Auto) 2.1, Monocytes # (Auto) 0.5, Eosinophils # (Auto) 0.1, Basophils # (Auto) 0.0, Immature Granulocyte # (Auto) 0.0, Sodium Level 141, Potassium Level 4.1, Chloride Level 106, Carbon Dioxide Level 26, Anion Gap 9, Blood Urea Nitrogen 13, Creatinine 0.70, Estimat Glomerular Filtration Rate 103, BUN/Creatinine Ratio 19, Glucose Level 100, Calcium Level 8.7, Corrected Calcium 9.3, Total Bilirubin 0.3, Aspartate Amino Transf (AST/SGOT) 29, Alanine Aminotransferase (ALT/SGPT) 39, Alkaline Phosphatase 44, Total Protein 5.5L, Albumin 3.3 Microbiology 02/18/22 Urine Culture - Final, Complete >=3 Gram Positive Isolates Pending Labs Microbiology Date/Time Source Procedure Growth Status 02/18/22 19:07 Urine Clean Catch Urine Culture - Final >=3 Gram Positive Isolates Complete Laboratory Tests 02/18/22 19:07: White Blood Count 5.9, Red Blood Count 4.67, Hemoglobin 14.3, Hematocrit 43, Mean Corpuscular Volume 93, Mean Corpuscular Hemoglobin 31, Mean Corpuscular Hemoglobin Concent 33, Red Cell Distribution Width 13.3, Platelet Count 196, Mean Platelet Volume 10.9, Immature Granulocyte % (Auto) 0, Neutrophils (%) (Auto) 82, Lymphocytes (%) (Auto) 11, Monocytes (%) (Auto) 7, Eosinophils (%) (Auto) 0, Basophils (%) (Auto) 0, Neutrophils # (Auto) 4.8, Lymphocytes # (Auto) 0.6, Monocytes # (Auto) 0.4, Eosinophils # (Auto) 0.0, Basophils # (Auto) 0.0, Immature Granulocyte # (Auto) 0.0, Urine Color YELLOW, Urine Clarity CLOUDY, U rine pH 7.5, Urine Specific [place] 1.015, Urine Protein TRACE, Urine Glucose (UA) NEGATIVE, Urine Ketones TRACE, Urine Nitrite NEGATIVE, Urine Bilirubin NEGATIVE, Urine Urobilinogen 0.2, Urine Leukocyte Esterase NEGATIVE, Urine RBC (Auto) 2+, Urine RBC 10-25, Urine WBC NONE, Urine Squamous Epithelial Cells 0-2, Urine Renal Epithelial Cells NONE, Urine Crystals NONE, Urine Bacteria LARGE, Urine Casts NONE, Urine Mucus NEGATIVE, Urine Culture Indicated YES, Sodium Level 141, Potassium Level 4.5, Chloride Level 105, Carbon Dioxide Level 21, Anion Gap 15, Blood Urea Nitrogen 19, Creatinine 0.84, Estimat Glomerular Filtration Rate 83, BUN/Creatinine Ratio 23, Glucose Level 121, Calcium Level 9.1, Corrected Calcium 9.0, Total Bilirubin 0.2, Aspartate Amino Transf (AST/SGOT) 52, Alanine Aminotransferase (ALT/SGPT) 37, Alkaline Phosphatase 57, Total Creatine Kinase 490, C-Reactive Protein High Sensitivity 0.02, Total Protein 7.4, Albumin 4.1 02/19/22 05:36: White Blood Count 3.7, Red Blood Count 3.94, Hemoglobin 11.9, Hematocrit 37, Mean Corpuscular Volume 93, Mean Corpuscular Hemoglobin 30, Mean Corpuscular Hemoglobin Concent 33, Red Cell Distribution Width 13.2, Platelet Count 174, Mean Platelet Volume 11.0, Immature Granulocyte % (Auto) 0, Neutrophils (%) (Auto) 59, Lymphocytes (%) (Auto) 27, Monocytes (%) (Auto) 13, Eosinophils (%) (Auto) 0, Basophils (%) (Auto) 0, Neutrophils # (Auto) 2.2, Lymphocytes # (Auto) 1.0, Monocytes # (Auto) 0.5, Eosinophils # (Auto) 0.0, Basophils # (Auto) 0.0, Immature Granulocyte # (Auto) 0.0, Sodium Level 140, Potassium Level 3.9, Chloride Level 108, Carbon Dioxide Level 23, Anion Gap 9, Blood Urea Nitrogen 19, Creatinine 0.76, Estimat Glomerular Filtration Rate 94, BUN/Creatinine Ratio 25, Glucose Level 94, Calcium Level 8.1, Serum Test, Qualitative NEGATIVE 02/19/22 06:18: Stone Weight [Pending], Stone Description [Pending], Stone Composition [Pending] 02/20/22 05:45: White Blood Count 3.3, Red Blood Count 3.71, Hemoglobin 11.3, Hematocrit 35, Mean Corpuscular Volume 94, Mean Corpuscular Hemoglobin 31, Mean Corpuscular Hemoglobin Concent 33, Red Cell Distribution Width 13.2, Platelet Count 148, Mean Platelet Volume 11.3, Immature Granulocyte % (Auto) 0, Neutrophils (%) (Auto) 37, Lymphocytes (%) (Auto) 53, Monocytes (%) (Auto) 9, Eosinophils (%) (Auto) 1, Basophils (%) (Auto) 0, Neutrophils # (Auto) 1.2, Lymphocytes # (Auto) 1.8, Monocytes # (Auto) 0.3, Eosinophils # (Auto) 0.0, Basophils # (Auto) 0.0, Immature Granulocyte # (Auto) 0.0, Sodium Level 141, Potassium Level 3.9, Chloride Level 110, Carbon Dioxide Level 23, Anion Gap 8, Blood Urea Nitrogen 11, Creatinine 0.66, Estimat Glomerular Filtration Rate 105, BUN/Creatinine Ratio 17, Glucose Level 92, Calcium Level 8.0, Corrected Calcium 8.8, Total Bilirubin 0.2, Aspartate Amino Transf (AST/SGOT) 29, Alanine Aminotransferase (ALT/SGPT) 25, Alkaline Phosphatase 40, C-Reactive Protein High Sensitivity 0.06, Total Protein 4.9, Albumin 3.0, Erythrocyte Sedimentation Rate 7 02/20/22 12:41: Lactic Acid Level 1.35 02/21/22 06:46: White Blood Count 4.0, Red Blood Count 4.02, Hemoglobin 12.2, Hematocrit 38, Mean Corpuscular Volume 94, Mean Corpuscular Hemoglobin 30, Mean Corpuscular Hemoglobin Concent 32, Red Cell Distribution Width 13.0, Platelet Count 153, Mean Platelet Volume 11.1, Immature Granulocyte % (Auto) 0, Neutrophils (%) (Auto) 41, Lymphocytes (%) (Auto) 48, Monocytes (%) (Auto) 9, Eosinophils (%) (Auto) 2, Basophils (%) (Auto) 0, Neutrophils # (Auto) 1.6, Lymphocytes # (Auto) 1.9, Monocytes # (Auto) 0.3, Eosinophils # (Auto) 0.1, Basophils # (Auto) 0.0, Immature Granulocyte # (Auto) 0.0, Sodium Level 143, Potassium Level 3.8, Chloride Level 107, Carbon Dioxide Level 26, Anion Gap 10, Blood Urea Nitrogen 11, Creatinine 0.66, Estimat Glomerular Filtration Rate 105, BUN/Creatinine Ratio 17, Glucose Level 98, Calcium Level 8.5, Corrected Calcium 9.1, Total Bilirubin 0.4, Aspartate Amino Transf (AST/SGOT) 28, Alanine Aminotransferase (ALT/SGPT) 31, Alkaline Phosphatase 46, Total Protein 5.5, Albumin 3.3 02/22/22 06:59: White Blood Count 5.3, Red Blood Count 3.97, Hemoglobin 12.1, Hematocrit 37, Mean Corpuscular Volume 93, Mean Corpuscular Hemoglobin 31, Mean Corpuscular Hemoglobin Concent 33, Red Cell Distribution Width 12.8, Platelet Count 163, Mean Platelet Volume 11.0, Immature Granulocyte % (Auto) 0, Neutrophils (%) (Auto) 49, Lymphocytes (%) (Auto) 40, Monocytes (%) (Auto) 9, Eosinophils (%) (Auto) 2, Basophils (%) (Auto) 0, Neutrophils # (Auto) 2.6, Lymphocytes # (Auto) 2.1, Monocytes # (Auto) 0.5, Eosinophils # (Auto) 0.1, Basophils # (Auto) 0.0, Immature Granulocyte # (Auto) 0.0, Sodium Level 141, Potassium Level 4.1, Chloride Level 106, Carbon Dioxide Level 26, Anion Gap 9, Blood Urea Nitrogen 13, Creatinine 0.70, Estimat Glomerular Filtration Rate 103, BUN/Creatinine Ratio 19, Glucose Level 100, Calcium Level 8.7, Corrected Calcium 9.3, Total Bilirubin 0.3, Aspartate Amino Transf (AST/SGOT) 29, Alanine Aminotransferase (ALT/SGPT) 39, Alkaline Phosphatase 44, Total Protein 5.5, Albumin 3.3 Discharge Home Medications: Active Scripts Active Ondansetron Odt (Ondansetron) 4 Mg Tab.rapdis 4 Mg PO Q6H Pyridium (Phenazopyridine HCl) 200 Mg Tablet 1 Tab PO Q6H Ultram (Tramadol HCl) 50 Mg Tablet 50 Mg PO Q6H Flomax (Tamsulosin HCl) 0.4 Mg Cap 0.4 Mg PO DAILY@1800 Levofloxacin 500 Mg Tablet 500 Mg PO DAILY@11 Reported Fruit & Vegetable Daily Sftgel (Lycopene/Lut Xt/Fruit Extracts) 5 Mg-6 Mg-150 Mg Capsule 1 Each PO DAILY Turmeric (Turmeric Root Extract) 500 Mg Tablet 500 Mg PO DAILY B Complex (Vitamin B Complex) 1 Each Tablet 1 Each PO DAILY Zinc (Zinc Gluconate) 50 Mg Tablet 50 Mg PO DAILY Vitamin D3 (Cholecalciferol (Vitamin D3)) 50 Mcg (2000 Unit) Capsule 50 Mcg PO DAILY Medroxyprogesterone Acetate 2.5 Mg Tablet 2.5 Mg PO DAILY Estradiol Tablet (Estradiol) 1 Mg Tablet 1 Mg PO DAILY Instructions to patient/family Please see electronic discharge instructions given to patient. GILLIAN SANTANA DO Feb 22, 2022 10:33
[2022-02-22 10:49] VITALS: BP 108/71
[2022-02-22] MEDS ORDERED: BISACODYL 10 MG SUPP (DULCOLAX) PR NR (11:00)
== END 2022-02-22 10:52 | disposition home or self-care (01) | DRG 690 ==
LOC: EDUNIT# 18:05 → ER 18:06 → 4TH 23:44 → INTOOBSV 23:44 → OBSVTOIN 23:44 → EDLOC 23:44 → OBSVTOIN 02-20 12:17
PROVIDERS: ADMIT Internal Medicine; ATTEND Internal Medicine
PROC: 0TJ98ZZ Inspection of Ureter, Via Natural or Artificial Opening Endoscopic (ICD-10-PCS; principal; 2022-02-19 11:04)
DX: N13.6 Pyonephrosis (principal); N20.0 Calculus of kidney; N32.89 Other specified disorders of bladder; K59.00 Constipation, unspecified; J45.909 Unspecified asthma, uncomplicated; G43.909 Migraine, unspecified, not intractable, without status migrainosus; N31.9 Neuromuscular dysfunction of bladder, unspecified; K80.20 Calculus of gallbladder without cholecystitis without obstruction
CPT/HCPCS: 36415; 74018; 74176; 76000; 80048; 80053; 81000; 82550; 83605; 84703; 85025; 85652; 86141; 87088; 94760; G0378